=== PATIENT | male | born 1980 | race Caucasian/White ===

== ENCOUNTER 2016-12-08 11:04 | Emergency (ER) | payer BC ==
--- NOTE | 2016-12-08 11:48 | EDM.PDOC ---
ED HPI Trauma - General Chief Complaint: Lower Extremity Injury/Pain Stated Complaint: LEGS Time Seen by Provider: 12/08/16 11:15 - History of Present Illness INITIAL COMMENTS - FREE TEXT/NARRATIVE: History of present illness: [36 yo otherwise healthy male with chronic history of left lower leg pain x 6 months. He has been seen by PCP where there was lower leg US done which was negative. He states that they did an ultrasound of the heart which he does not know the results. He states he complete work up including DM. He states the pain starts on his feet with pain, numbness, tingling. ] Review of systems: As per history of present illness and below otherwise all systems reviewed and negative. Past medical history: As per history of present illness and as reviewed below otherwise noncontributory. Surgical history: As per history of present illness and as reviewed below otherwise noncontributory. Social history: No reported history of drug or alcohol abuse. Family history: As per history of present illness and as reviewed below otherwise noncontributory. Physical exam: General: Well developed, well nourished in NAD HEENT: Atraumatic, normocephalic, pupils reactive, negative for conjunctival pallor or scleral icterus, mucous membranes moist, throat clear, neck supple, nontender, trachea midline. Lungs: Clear to auscultation, breath sounds equal bilaterally, chest nontender. Heart: S1S2, regular, negative for clicks, rubs, or JVD. Abdomen: Soft, nondistended, nontender. Negative for masses or hepatosplenomegaly. Negative for costovertebral tenderness. Pelvis: Stable nontender. Genitourinary: Deferred. Rectal: Deferred. Extremities: Atraumatic, negative for cords or calf pain. Neurovascular unremarkable. NO EDEMA Neuro: Awake, alert, oriented. Cranial nerves II through XII unremarkable. Cerebellum unremarkable. Motor and sensory unremarkable throughout. Exam nonfocal. Diagnostics: [none] Therapeutics: [none] Impression: [neuropathy] Plan: [f/u with pcp f/u with neurology] Definitive disposition and diagnosis as appropriate pending reevaluation and review of above. Allergies/ADRs: Allergies No Known Allergies Allergy (Verified 12/08/16 11:26) Home Medications: Ambulatory Orders . [No Known Home Meds] 02/04/16 [Confirmed 12/08/16] Past Medical History - Past Health History Medical/Surgical History: Denies Medical/Surgical History HEENT History: Reports: None Cardiovascular History: Reports: None Respiratory History: Reports: Sleep apnea Gastrointestinal History: Reports: None Genitourinary History: Reports: None Musculoskeletal History: Reports: None Neurological History: Reports: None Psychiatric History: Reports: None Endocrine/Metabolic History: Reports: None Hematologic History: Reports: None Immunologic History: Reports: None Oncologic (Cancer) History: Reports: None Dermatologic History: Reports: Cellulitis - Infectious Disease History Infectious Disease History: Reports: Chicken pox Social & Family History - Family History Family Medical History: Noncontributory - Tobacco Use Smoking Status *Q: Never Smoker Years of Tobacco use: 5 Packs/Tins Daily: 0.1 Used Tobacco, but Quit: Yes Month Tobacco Last Used: 05/2015 Second Hand Smoke Exposure: No - Caffeine Use Caffeine Use: Reports: Coffee Other Caffeine Use: 1 cup per day - Alcohol Use Days Per Week of Alcohol Use: 0 - Recreational Drug Use Recreational Drug Use: No Review of Systems - Review of Systems Review Of Systems: See Below (See history of present illness) Trauma Exam - Physical Exam Exam: See Below (See history of present illness) Course - Vital Signs Last Recorded V/S: Last Vital Signs Temp 96.9 F 12/08/16 11:26 Pulse 83 12/08/16 11:26 Resp 16 12/08/16 11:26 BP 158/75 H 12/08/16 11:26 Pulse Ox 95 12/08/16 11:26 Departure - Departure Time of Disposition: 11:52 Disposition: Home, Self-Care 01 Condition: good Clinical Impression: Neuropathy Referrals: PCP,None [Primary Care Provider] - Reyna Harrington MD [Physician] - Forms: ED Department Discharge Additional Instructions: The following information is given to patients seen in the emergency department who are being discharged to home. This information is to outline your options for follow-up care. We provide all patients seen in our emergency department with a follow-up referral. The need for follow-up, as well as the timing and circumstances, are variable depending upon the specifics of your emergency department visit. If you don't have a primary care physician on staff, we will provide you with a referral. We always advise you to contact your personal physician following an emergency department visit to inform them of the circumstance of the visit and for follow-up with them and/or the need for any referrals to a consulting specialist. The emergency department will also refer you to a specialist when appropriate. This referral assures that you have the opportunity for follow-up care with a specialist. All of these measure are taken in an effort to provide you with optimal care, which includes your follow-up. Under all circumstances we always encourage you to contact your private physician who remains a resource for coordinating your care. When calling for follow-up care, please make the office aware that this follow-up is from your recent emergency room visit. If for any reason you are refused follow-up, please contact the [facility] Emergency Department at and asked to speak to the emergency department charge nurse.
[2016-12-08 12:20] VITALS: BP 132/73
== END 2016-12-08 12:15 | disposition home or self-care (01) ==
LOC: MW.ED 11:04
DX: G62.9 Polyneuropathy, unspecified (principal)
CPT/HCPCS: 99282; 99283

== ENCOUNTER 2017-02-12 13:47 | Emergency (ER) | payer BC ==
--- NOTE | 2017-02-12 13:52 | EDM.PDOC ---
ED HPI GENERAL MEDICAL PROBLEM - General Chief Complaint: Lower Extremity Injury/Pain Stated Complaint: STEPPED ON A NAIL Time Seen by Provider: 02/12/17 13:49 Source of Information: Reports: Patient History Limitations: Reports: No Limitations - History of Present Illness INITIAL COMMENTS - FREE TEXT/NARRATIVE: History of present illness: [] Patient stepped on a nail 2 days ago and now complains of pain and throbbing in his foot. He does not believe there is any part of the nail left in his foot and has been ambulatory. Patient denies any fevers or chills but notes some swelling and red areas on the top of his foot and ankle. Review of systems: As per history of present illness and below otherwise all systems reviewed and negative. Past medical history: As per history of present illness and as reviewed below otherwise noncontributory. Surgical history: As per history of present illness and as reviewed below otherwise noncontributory. Social history: No reported history of drug or alcohol abuse. Family history: As per history of present illness and as reviewed below otherwise noncontributory. Physical exam: General: Well developed, well nourished in NAD HEENT: Atraumatic, normocephalic, pupils reactive, negative for conjunctival pallor or scleral icterus, mucous membranes moist, throat clear, neck supple, nontender, trachea midline. Lungs: Clear to auscultation, breath sounds equal bilaterally, chest nontender. Heart: S1S2, regular, negative for clicks, rubs, or JVD. Abdomen: Soft, nondistended, nontender. Negative for masses or hepatosplenomegaly. Negative for costovertebral tenderness. Pelvis: Stable nontender. Genitourinary: Deferred. Rectal: Deferred. Extremities: Puncture wound near the base of the fourth toe, there is erythema in the lateral dorsum of the foot and lateral ankle negative for cords or calf pain. Neurovascular unremarkable. Neuro: Awake, alert, oriented. Cranial nerves II through XII unremarkable. Cerebellum unremarkable. Motor and sensory unremarkable throughout. Exam nonfocal. Diagnostics: [] X-ray negative for foreign body or fracture Therapeutics: [] Tetanus status updated, Rocephin 1 g IM given Impression: [] Puncture wound left foot Plan: [] Augmentin twice a day for 7 days, followup with her primary care physician or return here immediately if symptoms worsen or change Definitive disposition and diagnosis as appropriate pending reevaluation and review of above. left foot Pain Score (Numeric/FACES): 6 - Related Data Allergies Allergy/AdvReac Type Severity Reaction Status Date / Time No Known Allergies Allergy Verified 02/12/17 13:59 Home Meds: Home Meds Amoxicillin/Potassium Clav [Augmentin 875-125 Tablet] 1 each PO BID #14 tablet 02/12/17 [Rx] Blood Pressure Medication 02/12/17 [History] Past Medical History - Past Health History Medical/Surgical History: Denies Medical/Surgical History HEENT History: Reports: None Cardiovascular History: Reports: None Respiratory History: Reports: Sleep Apnea Gastrointestinal History: Reports: None Genitourinary History: Reports: None Musculoskeletal History: Reports: None Neurological History: Reports: None Psychiatric History: Reports: None Endocrine/Metabolic History: Reports: None Hematologic History: Reports: None Immunologic History: Reports: None Oncologic (Cancer) History: Reports: None Dermatologic History: Reports: Cellulitis - Infectious Disease History Infectious Disease History: Reports: Chicken Pox Social & Family History - Family History Family Medical History: Noncontributory - Tobacco Use Smoking Status *Q: Never Smoker Years of Tobacco use: 5 Packs/Tins Daily: 0.1 Used Tobacco, but Quit: Yes Month Tobacco Last Used: 05/2015 Second Hand Smoke Exposure: No - Caffeine Use Caffeine Use: Reports: Coffee Other Caffeine Use: 1 cup per day - Alcohol Use Days Per Week of Alcohol Use: 0 - Recreational Drug Use Recreational Drug Use: No Review of Systems - Review of Systems Review Of Systems: See Below (See history of present illness) ED EXAM, GENERAL - Physical Exam Exam: See Below (See history of present illness) Course - Vital Signs Last Recorded V/S: Last Vital Signs Temp 36.4 C 02/12/17 13:59 Pulse 85 02/12/17 13:59 Resp 18 02/12/17 13:59 BP 147/70 H 02/12/17 13:59 Pulse Ox 97 02/12/17 13:59 - Orders/Labs/Meds Orders: Active Orders 24 hr Category Date Time Status Vaccines to be Administered [RC] PER UNIT ROUTINE Care 02/12/17 13:57 Active Foot 2V Lt [CR] Stat Exams 02/12/17 13:56 Taken Meds: Medications Discontinued Medications Generic Name Dose Route Start Last Admin Trade Name Freq PRN Reason Stop Dose Admin Diphtheria/Tetanus/Acell Pertussis 0.5 ml 02/12/17 13:56 Adacel IM 02/12/17 13:57 .ONCE ONE Departure - Departure Time of Disposition: 14:50 Disposition: Home, Self-Care 01 Condition: good Clinical Impression: Puncture wound of left foot Qualifiers: Encounter type: initial encounter Qualified Code(s): S91.332A - Puncture wound without foreign body, left foot, initial encounter - Discharge Information Prescriptions: Amoxicillin/Potassium Clav [Augmentin 875-125 Tablet] 1 each PO BID #14 tablet Referrals: PCP,Not In Area [Primary Care Provider] - Forms: ED Department Discharge Additional Instructions: The following information is given to patients seen in the emergency department who are being discharged to home. This information is to outline your options for follow-up care. We provide all patients seen in our emergency department with a follow-up referral. The need for follow-up, as well as the timing and circumstances, are variable depending upon the specifics of your emergency department visit. If you don't have a primary care physician on staff, we will provide you with a referral. We always advise you to contact your personal physician following an emergency department visit to inform them of the circumstance of the visit and for follow-up with them and/or the need for any referrals to a consulting specialist. The emergency department will also refer you to a specialist when appropriate. This referral assures that you have the opportunity for follow-up care with a specialist. All of these measure are taken in an effort to provide you with optimal care, which includes your follow-up. Under all circumstances we always encourage you to contact your private physician who remains a resource for coordinating your care. When calling for follow-up care, please make the office aware that this follow-up is from your recent emergency room visit. If for any reason you are refused follow-up, please contact the [facility] Emergency Department at and asked to speak to the emergency department charge nurse. Take Augmentin twice a day, warm soaks to the foot, Motrin or Aleve for pain followup with primary care physician or return here immediately if any symptoms change or worsen. [facility] Primary Care [address] [place] [id number] - My Orders Last 24 Hours: My Active Orders 02/12/17 13:56 Foot 2V Lt [CR] Stat 02/12/17 13:57 Vaccines to be Administered [RC] PER UNIT ROUTINE - Assessment/Plan Last 24 Hours: My Active Orders 02/12/17 13:56 Foot 2V Lt [CR] Stat 02/12/17 13:57 Vaccines to be Administered [RC] PER UNIT ROUTINE
[2017-02-12] MEDS ORDERED: Diphtheria,Pertussis(Acell),Tetanus Vaccine 0.5 ML Syringe IM ONE (13:56)
[2017-02-12] MEDS ORDERED: cefTRIAXone 1,000 MG in Lidocaine 1% 4 ML IM ONE (14:21)
--- NOTE | 2017-02-12 14:34 | CR ---
EXAMINATION: Left foot HISTORY: Stepped on a nail COMPARISON: CT dated 06/18/2015 TECHNIQUE: 2 views FINDINGS/IMPRESSION: There is no acute osseous abnormality, dislocation, or fracture. Bone mineraliz ation and joint spaces appear normal. There is mild soft tissue edema adjacent to the left forefoot most prominent along the dorsal aspect.
[2017-02-12 14:56] VITALS: BP 130/65
== END 2017-02-12 14:55 | disposition home or self-care (01) ==
LOC: MW.ED 13:47
DX: S91.332A Puncture wound without foreign body, left foot, initial encounter (principal); Z23 Encounter for immunization; W45.0XXA Nail entering through skin, initial encounter
CPT/HCPCS: 73620; 90471; 90715; 99283; J0696

== ENCOUNTER 2017-04-25 08:37 | Observation (INO) | payer BC ==
[2017-04-25] MEDS ORDERED: Sodium Chloride 0.9% 10 ML Syringe FLUSH PRN (08:49)
[2017-04-25] MEDS ORDERED: Sodium Chloride 0.9% 2.5 ML Syringe FLUSH PRN (08:49)
--- NOTE | 2017-04-25 09:05 | EDM.PDOC ---
<MeridaAndi - Last Filed: 04/25/17 10:16> ED HPI GENERAL MEDICAL PROBLEM - General Chief Complaint: Lower Extremity Injury/Pain Stated Complaint: LIGHT HEADED, LEG DIFFICULTY Time Seen by Provider: 04/25/17 08:43 - History of Present Illness INITIAL COMMENTS - FREE TEXT/NARRATIVE: HISTORY AND PHYSICAL: History of present illness: This is a 36-year-old male presenting to the emergency department the chief complaint of left lower leg pain. Patient tells me that the pain began yesterday. Rates it a 7 out of 10. Also complains of shortness of breath. Denies chest pain. Denies any nausea or vomiting. Denies any fevers or chills. Review of systems: As per history of present illness and below otherwise all systems reviewed and negative. Past medical history: Hypertension Surgical history: As per history of present illness and as reviewed below otherwise noncontributory. Social history: No reported history of drug or alcohol abuse. Family history: As per history of present illness and as reviewed below otherwise noncontributory. Physical exam: HEENT: Atraumatic, normocephalic, pupils reactive, negative for conjunctival pallor or scleral icterus, mucous membranes moist, throat clear, neck supple, nontender, trachea midline. Lungs: Clear to auscultation, breath sounds equal bilaterally, chest nontender. Heart: S1S2, regular, negative for clicks, rubs, or JVD. Abdomen: Soft, nondistended, nontender. Negative for masses or hepatosplenomegaly. Negative for costovertebral tenderness. Extremities: Atraumatic. +calf pain in left leg. No erythema/swelling. No pain/ tenderness in right leg. Strength 5/5 in upper extremities. Neuro: Awake, alert, oriented. Diagnostics: CBC CMP EKG CXR Troponin Blood cultures x2 Lactic acid US L. lower extremity Therapeutics: IV NS bolus Impression: Sepsis secondary to cellulitis of the leg Plan: Admit to observation for IV antibiotics Left Lower Leg Pain Score (Numeric/FACES): 7 - Related Data Allergies Allergy/AdvReac Type Severity Reaction Status Date / Time No Known Allergies Allergy Verified 04/25/17 08:42 Home Meds: Home Meds Omeprazole 1 cap PO ASDIRECTED PRN 04/25/17 [History] amLODIPine [Norvasc] 1 tab PO DAILY 04/25/17 [History] Past Medical History - Past Health History Medical/Surgical History: Denies Medical/Surgical History HEENT History: Reports: None Cardiovascular History: Reports: None Respiratory History: Reports: Sleep Apnea Gastrointestinal History: Reports: None Genitourinary History: Reports: None Musculoskeletal History: Reports: None Neurological History: Reports: None Psychiatric History: Reports: None Endocrine/Metabolic History: Reports: None Hematologic History: Reports: None Immunologic History: Reports: None Oncologic (Cancer) History: Reports: None Dermatologic History: Reports: Cellulitis - Infectious Disease History Infectious Disease History: Reports: Chicken Pox Social & Family History - Family History Family Medical History: Noncontributory - Tobacco Use Smoking Status *Q: Never Smoker Years of Tobacco use: 5 Packs/Tins Daily: 0.1 Used Tobacco, but Quit: Yes Month Tobacco Last Used: 05/2015 Second Hand Smoke Exposure: No - Caffeine Use Caffeine Use: Reports: Coffee Other Caffeine Use: 1 cup per day - Alcohol Use Days Per Week of Alcohol Use: 0 Number of Drinks Per Day: 2 Total Drinks Per Week: 0 - Recreational Drug Use Recreational Drug Use: No Review of Systems - Review of Systems Review Of Systems: See Below ED EXAM, GENERAL - Physical Exam Exam: See Below Course - Vital Signs Last Recorded V/S: Last Vital Signs Temp 37.7 C 04/25/17 10:00 Pulse 103 H 04/25/17 10:29 Resp 20 04/25/17 10:29 BP 133/60 04/25/17 10:29 Pulse Ox 96 04/25/17 10:29 - Orders/Labs/Meds Orders: Active Orders 24 hr Category Date Time Status Admission Status [Patient Status] [ADT] Stat ADT 04/25/17 10:14 Active EKG Documentation Completion [RC] STAT Care 04/25/17 08:49 Active CULTURE BLOOD [BC] Stat Lab 04/25/17 09:42 Received CULTURE BLOOD [BC] Stat Lab 04/25/17 09:59 Received VANCOMYCIN TROUGH [CHEM] Stat Lab 04/26/17 10:00 Ordered Piperacillin/Tazobactam [Piperacil-Tazobact] 3.375 gm Med 04/25/17 10:00 Active Sodium Chloride 0.9% [Normal Saline] 50 ml IV Q6H Sodium Chloride 0.9% [Normal Saline] 1,000 ml Med 04/25/17 10:30 Active IV ASDIRECTED Sodium Chloride 0.9% [Normal Saline] 1,000 ml Med 04/25/17 10:38 Active IV NOW Sodium Chloride 0.9% [Saline Flush] Med 04/25/17 08:49 Active 10 ml FLUSH ASDIRECTED PRN Sodium Chloride 0.9% [Saline Flush] Med 04/25/17 08:49 Active 2.5 ml FLUSH ASDIRECTED PRN Vancomycin 1,500 mg Med 04/25/17 11:00 Active Sodium Chloride 0.9% [Normal Saline] 500 ml IV Q8H Vancomycin Pharmacy to Dose [Pharmacy to Dose - Med 04/25/17 10:15 Active Vancomycin] 1 dose .XX ASDIRECTED Blood Culture x2 Reflex Set [OM.PC] Stat Oth 04/25/17 09:25 Ordered Saline Lock Insert [OM.PC] Stat Oth 04/25/17 08:49 Ordered Medication Orders Piperacillin Sod/Tazobactam (Sod 3.375 gm/ Sodium Chloride) 50 mls @ 100 mls/ hr IV Q6H PORFIRIO Last Admin: 04/25/17 10:15 Dose: 100 mls/hr Vancomycin HCl 1,500 mg/ (Sodium Chloride) 500 mls @ 250 mls/hr IV Q8H PORFIRIO Sodium Chloride (Normal Saline) 1,000 mls @ 150 mls/hr IV ASDIRECTED PORFIRIO Sodium Chloride (Normal Saline) 1,000 mls @ 999 mls/hr IV NOW STA Stop: 04/25/17 11:38 Last Admin: 04/25/17 10:38 Dose: 999 mls/hr Sodium Chloride (Saline Flush) 10 ml FLUSH ASDIRECTED PRN PRN Reason: Keep Vein Open Sodium Chloride (Saline Flush) 2.5 ml FLUSH ASDIRECTED PRN PRN Reason: Keep Vein Open Vancomycin HCl (Pharmacy To Dose - Vancomycin) 1 dose .XX ASDIRECTED [facility] Labs: Laboratory Tests 04/25/17 04/25/17 04/25/17 Range/Units 08:49 08:49 08:49 WBC 16.78 H (4.0-11.0) K/uL RBC 5.48 (4.50-5.90) M/uL Hgb 16.4 (13.0-17.0) g/dL Hct 46.7 (38.0-50.0) % MCV 85.2 (80.0-98.0) fL MCH 29.9 (27.0-32.0) pg MCHC 35.1 (31.0-37.0) g/dL RDW Std Deviation 37.6 (28.0-62.0) fl RDW Coeff of Maureen 12 (11.0-15.0) % Plt Count 182 (150-400) K/uL MPV 9.40 (7.40-12.00) fL Neut % (Auto) 85.5 H (48.0-80.0) % Lymph % (Auto) 8.3 L (16.0-40.0) % Brooks % (Auto) 4.8 (0.0-15.0) % Eos % (Auto) 1.3 (0.0-7.0) % Baso % (Auto) 0.1 (0.0-1.5) % Neut # (Auto) 14.3 H (1.4-5.7) K/uL Lymph # (Auto) 1.4 (0.6-2.4) K/uL Brooks # (Auto) 0.8 (0.0-0.8) K/uL Eos # (Auto) 0.2 (0.0-0.7) K/uL Baso # (Auto) 0.0 (0.0-0.1) K/uL Lactate (0.20-2.00) mmol/L Sodium 137 (136-146) mmol/L Potassium 4.3 (3.5-5.1) mmol/L Chloride 103 (98-110) mmol/L Carbon Dioxide 24 (21-31) mmol/L BUN 13 (6.0-23.0) mg/dL Creatinine 0.8 (0.6-1.5) mg/dL Est Cr Clr Drug Dosing 147.04 mL/min Estimated GFR (MDRD) > 60.0 ml/min Glucose 102 (60-110) mg/dL Calcium 9.1 (8.8-10.8) mg/dL Total Bilirubin 0.8 (0.1-1.5) mg/dL AST 25 (5-40) IU/L ALT 53 (8-54) IU/L Alkaline Phosphatase 80 (40-150) Troponin I < 0.10 (0.0-0.29) NG/ML Total Protein 7.3 (6.0-8.0) g/dL Albumin 4.3 (3.5-5.0) g/dL Globulin 3.0 (2.0-3.5) g/dL Albumin/Globulin Ratio 1.4 (1.3-2.8) 04/25/17 Range/Units 09:42 WBC (4.0-11.0) K/uL RBC (4.50-5.90) M/uL Hgb (13.0-17.0) g/dL Hct (38.0-50.0) % MCV (80.0-98.0) fL MCH (27.0-32.0) pg MCHC (31.0-37.0) g/dL RDW Std Deviation (28.0-62.0) fl RDW Coeff of Maureen (11.0-15.0) % Plt Count (150-400) K/uL MPV (7.40-12.00) fL Neut % (Auto) (48.0-80.0) % Lymph % (Auto) (16.0-40.0) % Brooks % (Auto) (0.0-15.0) % Eos % (Auto) (0.0-7.0) % Baso % (Auto) (0.0-1.5) % Neut # (Auto) (1.4-5.7) K/uL Lymph # (Auto) (0.6-2.4) K/uL Brooks # (Auto) (0.0-0.8) K/uL Eos # (Auto) (0.0-0.7) K/uL Baso # (Auto) (0.0-0.1) K/uL Lactate 2.7 H (0.20-2.00) mmol/L Sodium (136-146) mmol/L Potassium (3.5-5.1) mmol/L Chloride (98-110) mmol/L Carbon Dioxide (21-31) mmol/L BUN (6.0-23.0) mg/dL Creatinine (0.6-1.5) mg/dL Est Cr Clr Drug Dosing mL/min Estimated GFR (MDRD) ml/min Glucose (60-110) mg/dL Calcium (8.8-10.8) mg/dL Total Bilirubin (0.1-1.5) mg/dL AST (5-40) IU/L ALT (8-54) IU/L Alkaline Phosphatase (40-150) Troponin I (0.0-0.29) NG/ML Total Protein (6.0-8.0) g/dL Albumin (3.5-5.0) g/dL Globulin (2.0-3.5) g/dL Albumin/Globulin Ratio (1.3-2.8) Meds: Medications Generic Name Dose Route Start Last Admin Trade Name Freq PRN Reason Stop Dose Admin Piperacillin Sod/Tazobactam 50 mls @ 100 mls/hr 04/25/17 10:00 04/25/17 10:15 Sod 3.375 gm/ Sodium Chloride IV 100 mls/hr Q6H PORFIRIO Administration Vancomycin HCl 1,500 mg/ 500 mls @ 250 mls/hr 04/25/17 11:00 Sodium Chloride IV Q8H PORFIRIO Sodium Chloride 1,000 mls @ 150 mls/hr 04/25/17 10:30 Normal Saline IV ASDIRECTED PORFIRIO Sodium Chloride 1,000 mls @ 999 mls/hr 04/25/17 10:38 04/25/17 10:38 Normal Saline IV 04/25/17 11:38 999 mls/hr NOW STA Administration Sodium Chloride 10 ml 04/25/17 08:49 Saline Flush FLUSH ASDIRECTED PRN Keep Vein Open Sodium Chloride 2.5 ml 04/25/17 08:49 Saline Flush FLUSH ASDIRECTED PRN Keep Vein Open Vancomycin HCl 1 dose 04/25/17 10:15 Pharmacy To Dose - Vancomycin .XX ASDIRECTED PORFIRIO Discontinued Medications Generic Name Dose Route Start Last Admin Trade Name Freq PRN Reason Stop Dose Admin Sodium Chloride 1,000 mls @ 999 mls/hr 04/25/17 09:29 04/25/17 10:02 Normal Saline IV 04/25/17 10:29 999 mls/hr STAT ONE Administration Morphine Sulfate 2 mg 04/25/17 10:18 04/25/17 10:38 Morphine IV 04/25/17 10:19 Not Given ONETIME ONE Morphine Sulfate 2 mg 04/25/17 10:22 04/25/17 10:27 Morphine IVPUSH 04/25/17 10:23 2 mg NOW STA Administration Ondansetron HCl 4 mg 04/25/17 10:26 04/25/17 10:31 Zofran IVPUSH 04/25/17 10:27 4 mg ONETIME ONE Administration Departure - Departure Time of Disposition: 10:12 Disposition: Admitted As Inpatient 68 Condition: Fair Clinical Impression: Sepsis due to cellulitis - Discharge Information Referrals: PCP,None [Primary Care Provider] - Forms: ED Department Discharge <Sheyla Sprague - Last Filed: 04/25/17 10:55> ED HPI GENERAL MEDICAL PROBLEM - History of Present Illness INITIAL COMMENTS - FREE TEXT/NARRATIVE: I have seen and discussed this patient with Dr. Merida and agree with plan above.
[2017-04-25] MEDS ORDERED: Sodium Chloride 0.9% 1,000 ML IV ONE ×2 (09:29→15:30)
[2017-04-25 09:32] LABS: CHLORIDE,CL 103 mmol/L (98-110); SODIUM,NA 137 mmol/L (136-146)
--- NOTE | 2017-04-25 09:34 | US ---
Left lower extremity venous Doppler Doppler images lower extremity demonstrate normal phasicity augmentation competence and absent pulsa tility lower extremity veins with no evidence of deep vein thrombus. There is a lymph node in the le ft groin measuring 3.73 cm. Ultrasonographically this appears to have a fatty centrum Impression: No evidence of deep vein thrombosis in the left lower extremity. 3.7 cm lymph node in th e left groin
--- NOTE | 2017-04-25 09:35 | CR ---
2 view chest The costophrenic angles are sharp. The mediastinum is normal and the lungs are clear. Impression: Normal chest
[2017-04-25] MEDS: Piperacillin/Tazobactam 3.375 GM in Sodium Chloride 0.9% 50 ML IV SCH ×3 (10:15→21:30)
[2017-04-25] MEDS ORDERED: Morphine 10 MG/ML Syringe IV ONE (10:18)
[2017-04-25] MEDS ORDERED: Morphine 2 MG/ML Syringe IVPUSH STA (10:22)
[2017-04-25] MEDS ORDERED: Ondansetron 4 MG/2 ML SDV IVPUSH ONE (10:26)
[2017-04-25] MEDS ORDERED: Sodium Chloride 0.9% 1,000 ML IV SCH (10:30)
[2017-04-25] MEDS ORDERED: Sodium Chloride 0.9% 1,000 ML IV STA (10:38)
[2017-04-25] MEDS ORDERED: Ondansetron 4 MG Tab.DIS PO PRN (11:08)
[2017-04-25] MEDS: Sodium Chloride 0.9% 1,000 ML IV SCH (11:14)
--- NOTE | 2017-04-25 11:19 | PCM.HP ---
<Junior Tapia - Last Filed: 04/25/17 11:13> H&P History of Present Illness - General Date of Service: 04/25/17 Admit Problem/Dx: Admission Diagnosis/Problem Admission Diagnosis/Problem left lower extremity Cellulitis Source of Information: Patient History Limitations: Reports: No Limitations - History of Present Illness Initial Comments - Free Text/Narative: 36-year-old male with a medical history of hypertension and GERD that is being admitted with left lower extremity cellulitis. Patient has 1 previous admission with cellulitis in the left lower extremity in 2014. Patient states that he woke up this morning and noted that his left lower extremity at the foot and up along the sides of his leg was tender to palpation, warm and erythematous. He began to have fever and chills and presented to the emergency room. Pain in the left lower extremity is rated as 8 out of 10 at its worst. Patient does express some pain in his left groin that does not note any redness or erythema in the thigh. He denies any recent travel. Patient states that yesterday he went about his day without any problems and went to bed without any problems or pain in his lower extremities. Patient cannot recall any trauma to the left lower extremity. He notes that he has dry skin on his feet and thinks that this may be the source of his infection. He denies any chest pain, palpitations, shortness of breath, wheezing, cough, abdominal pain, nausea, vomiting, constipation, diarrhea. He has no history of pulmonary embolism. He denies any pain in the calves bilaterally. ER course: ER course: Patient given multiple IV fluid boluses and started on IV vancomycin and Zosyn. CBC shows elevated white blood cell count with his lactate level elevated at 2.6. Patient is slightly tachycardic with a maximum temperature 99.9 while in the emergency room. He was given multiple doses of IV morphine for pain relief which reduced his pain from 8 out of 10 down to 6 out of 10. Left Lower Leg Pain Score (Numeric/FACES): 7 - Related Data Allergies/Adverse Reactions: Allergies Allergy/AdvReac Type Severity Reaction Status Date / Time No Known Allergies Allergy Verified 04/25/17 08:42 Home Medications: Home Meds Omeprazole 1 cap PO ASDIRECTED PRN 04/25/17 [History] amLODIPine [Norvasc] 1 tab PO DAILY 04/25/17 [History] Past Medical History - Past Health History Medical/Surgical History: Denies Medical/Surgical History HEENT History: Reports: None Cardiovascular History: Reports: None Respiratory History: Reports: Sleep Apnea Gastrointestinal History: Reports: None Genitourinary History: Reports: None Musculoskeletal History: Reports: None Neurological History: Reports: None Psychiatric History: Reports: None Endocrine/Metabolic History: Reports: None Hematologic History: Reports: None Immunologic History: Reports: None Oncologic (Cancer) History: Reports: None Dermatologic History: Reports: Cellulitis - Infectious Disease History Infectious Disease History: Reports: Chicken Pox Social & Family History - Family History Family Medical History: Noncontributory - Tobacco Use Smoking Status *Q: Never Smoker Years of Tobacco use: 5 Packs/Tins Daily: 0.1 Used Tobacco, but Quit: Yes Month Tobacco Last Used: 05/2015 Second Hand Smoke Exposure: No - Caffeine Use Caffeine Use: Reports: Coffee Other Caffeine Use: 1 cup per day Caffeine Use Comment: 2 cups per day - Alcohol Use Days Per Week of Alcohol Use: 0 Number of Drinks Per Day: 2 Total Drinks Per Week: 0 - Recreational Drug Use Recreational Drug Use: No H&P Review of Systems - Review of Systems: Review Of Systems: See Below General: Reports: Fever, Chills HEENT: Reports: No Symptoms Pulmonary: Reports: No Symptoms Cardiovascular: Reports: No Symptoms Gastrointestinal: Reports: No Symptoms Genitourinary: Reports: No Symptoms Musculoskeletal: Reports: Leg Pain (Left lower extremity at the foot) Skin: Reports: Erythema, Other (Warm to palpation) Psychiatric: Reports: No Symptoms Neurological: Reports: No Symptoms Hematologic/Lymphatic: Reports: No Symptoms Immunologic: Reports: No Symptoms Exam - Exam Exam: See Below - Vital Signs Vital Signs: Last Vital Signs Temp 99.9 F 04/25/17 10:00 Pulse 103 H 04/25/17 10:29 Resp 20 04/25/17 10:29 BP 133/60 04/25/17 10:29 Pulse Ox 96 04/25/17 10:29 Weight: 140.614 kg - Exam Quality Assessment: DVT Prophylaxis (Lovenox) General: Alert, Oriented, Cooperative HEENT: Conjunctiva Clear, Hearing Intact, Mucosa Moist & [place], Posterior Pharynx Clear Neck: Supple, Trachea Midline, 2 Lungs: Clear to Auscultation, Normal Respiratory Effort Cardiovascular: Regular Rhythm, Tachycardia GI/Abdominal Exam: Normal Bowel Sounds, Soft, Non-Tender, No Organomegaly, No Distention, No Abnormal Bruit, No Mass Extremities: No Pedal Edema, Normal Capillary Refill, Increased Warmth (Left lower extremity at the foot of the sides of the leg), Redness (Left lower extremity at the foot sides of the leg) Peripheral Pulses: 2+: Radial (L), Radial (R), Posterior Tibial (L), Posterior Tibial (R) Skin: Warm, Dry, Intact Neuro Extensive - Mental Status: Alert, Oriented x3, Normal Mood/Affect, Normal Cognition Psychiatric: Alert, Normal Affect, Normal Mood - Patient Data Lab Results Last 24 hrs: Laboratory Results - last 24 hr 04/25/17 04/25/17 04/25/17 Range/Units 08:49 08:49 08:49 WBC 16.78 H (4.0-11.0) K/uL RBC 5.48 (4.50-5.90) M/uL Hgb 16.4 (13.0-17.0) g/dL Hct 46.7 (38.0-50.0) % MCV 85.2 (80.0-98.0) fL MCH 29.9 (27.0-32.0) pg MCHC 35.1 (31.0-37.0) g/dL RDW Std Deviation 37.6 (28.0-62.0) fl RDW Coeff of Maureen 12 (11.0-15.0) % Plt Count 182 (150-400) K/uL MPV 9.40 (7.40-12.00) fL Neut % (Auto) 85.5 H (48.0-80.0) % Lymph % (Auto) 8.3 L (16.0-40.0) % [place] % (Auto) 4.8 (0.0-15.0) % Eos % (Auto) 1.3 (0.0-7.0) % Baso % (Auto) 0.1 (0.0-1.5) % Neut # (Auto) 14.3 H (1.4-5.7) K/uL Lymph # (Auto) 1.4 (0.6-2.4) K/uL [place] # (Auto) 0.8 (0.0-0.8) K/uL Eos # (Auto) 0.2 (0.0-0.7) K/uL Baso # (Auto) 0.0 (0.0-0.1) K/uL Lactate (0.20-2.00) mmol/L Sodium 137 (136-146) mmol/L Potassium 4.3 (3.5-5.1) mmol/L Chloride 103 (98-110) mmol/L Carbon Dioxide 24 (21-31) mmol/L BUN 13 (6.0-23.0) mg/dL Creatinine 0.8 (0.6-1.5) mg/dL Est Cr Clr Drug Dosing 147.04 mL/min Estimated GFR (MDRD) > 60.0 ml/min Glucose 102 (60-110) mg/dL Calcium 9.1 (8.8-10.8) mg/dL Total Bilirubin 0.8 (0.1-1.5) mg/dL AST 25 (5-40) IU/L ALT 53 (8-54) IU/L Alkaline Phosphatase 80 (40-150) Troponin I < 0.10 (0.0-0.29) NG/ML Total Protein 7.3 (6.0-8.0) g/dL Albumin 4.3 (3.5-5.0) g/dL Globulin 3.0 (2.0-3.5) g/dL Albumin/Globulin Ratio 1.4 (1.3-2.8) 04/25/17 Range/Units 09:42 WBC (4.0-11.0) K/uL RBC (4.50-5.90) M/uL Hgb (13.0-17.0) g/dL Hct (38.0-50.0) % MCV (80.0-98.0) fL MCH (27.0-32.0) pg MCHC (31.0-37.0) g/dL RDW Std Deviation (28.0-62.0) fl RDW Coeff of Maureen (11.0-15.0) % Plt Count (150-400) K/uL MPV (7.40-12.00) fL Neut % (Auto) (48.0-80.0) % Lymph % (Auto) (16.0-40.0) % [place] % (Auto) (0.0-15.0) % Eos % (Auto) (0.0-7.0) % Baso % (Auto) (0.0-1.5) % Neut # (Auto) (1.4-5.7) K/uL Lymph # (Auto) (0.6-2.4) K/uL [place] # (Auto) (0.0-0.8) K/uL Eos # (Auto) (0.0-0.7) K/uL Baso # (Auto) (0.0-0.1) K/uL Lactate 2.7 H (0.20-2.00) mmol/L Sodium (136-146) mmol/L Potassium (3.5-5.1) mmol/L Chloride (98-110) mmol/L Carbon Dioxide (21-31) mmol/L BUN (6.0-23.0) mg/dL Creatinine (0.6-1.5) mg/dL Est Cr Clr Drug Dosing mL/min Estimated GFR (MDRD) ml/min Glucose (60-110) mg/dL Calcium (8.8-10.8) mg/dL Total Bilirubin (0.1-1.5) mg/dL AST (5-40) IU/L ALT (8-54) IU/L Alkaline Phosphatase (40-150) Troponin I (0.0-0.29) NG/ML Total Protein (6.0-8.0) g/dL Albumin (3.5-5.0) g/dL Globulin (2.0-3.5) g/dL Albumin/Globulin Ratio (1.3-2.8) Result Diagrams: 04/25/17 08:49 04/25/17 08:49 *Q Meaningful Use (ADM) - VTE *Q VTE Criteria *Q: - Stroke *Q Stroke Criteria *Q: - AMI *Q AMI Criteria *Q: - Problem List (1) Cellulitis of left anterior lower leg SNOMED Code(s): 359755436 ICD Code: L03.116 - CELLULITIS OF LEFT LOWER LIMB Status: Acute Current Visit: No (2) Lactic acidosis SNOMED Code(s): 94870935 ICD Code: E87.2 - ACIDOSIS Status: Acute Current Visit: Yes Problem List Initiated/Reviewed/Updated: Yes Orders Last 24hrs: Active Orders 24 hr Category Date Time Status Admission Status [Patient Status] [ADT] Stat ADT 04/25/17 10:14 Active EKG Documentation Completion [RC] STAT Care 04/25/17 08:49 Active Height and Weight [RC] DAILY Care 04/25/17 11:08 Ordered Intake and Output [RC] QSHIFT Care 04/25/17 11:09 Ordered Notify Provider Vital Signs [RC] ASDIRECTED Care 04/25/17 11:09 Ordered Oxygen Therapy [RC] PRN Care 04/25/17 11:08 Ordered Pulse Oximetry [RC] PRN Care 04/25/17 11:09 Ordered Up With Assistance [RC] ASDIRECTED Care 04/25/17 11:08 Ordered VTE/DVT Education [RC] PER UNIT ROUTINE Care 04/25/17 11:08 Ordered Vital Signs [RC] Q4H Care 04/25/17 11:08 Ordered Regular Diet [DIET] Diet 04/25/17 Breakfast Ordered BASIC METABOLIC PANEL,BMP [CHEM] AM Lab 04/26/17 05:11 Ordered BASIC METABOLIC PANEL,BMP [CHEM] AM Lab 04/27/17 05:11 Ordered CBC WITH AUTO DIFF [HEME] AM Lab 04/26/17 05:11 Ordered CBC WITH AUTO DIFF [HEME] AM Lab 04/27/17 05:11 Ordered CULTURE BLOOD [BC] Stat Lab 04/25/17 09:42 Received CULTURE BLOOD [BC] Stat Lab 04/25/17 09:59 Received LACTIC ACID,WHOLE BLOOD [BG] Q6H Lab 04/25/17 16:00 Ordered LACTIC ACID,WHOLE BLOOD [BG] Q6H Lab 04/25/17 22:00 Ordered VANCOMYCIN TROUGH [CHEM] Stat Lab 04/26/17 10:00 Ordered Acetaminophen [Tylenol] Med 04/25/17 11:08 Ordered 650 mg PO Q4H PRN Enoxaparin [Lovenox] Med 04/25/17 11:15 Ordered 40 mg SUBCUT DAILY Morphine Med 04/25/17 11:08 Ordered 2 mg IVPUSH Q2H PRN Ondansetron [Zofran ODT] Med 04/25/17 11:08 Ordered 4 mg PO Q4H PRN Piperacillin/Tazobactam [Piperacil-Tazobact] 3.375 gm Med 04/25/17 10:00 Active Sodium Chloride 0.9% [Normal Saline] 50 ml IV Q6H Sodium Chloride 0.9% @ 125 MLS/HR (1000ml) Med 04/25/17 11:15 Ordered Sodium Chloride 0.9% [Normal Saline] 1,000 ml IV ASDIRECTED Sodium Chloride 0.9% [Normal Saline] 1,000 ml Med 04/25/17 10:30 Active IV ASDIRECTED Sodium Chloride 0.9% [Normal Saline] 1,000 ml Med 04/25/17 10:38 Active IV NOW Sodium Chloride 0.9% [Saline Flush] Med 04/25/17 08:49 Active 10 ml FLUSH ASDIRECTED PRN Sodium Chloride 0.9% [Saline Flush] Med 04/25/17 08:49 Active 2.5 ml FLUSH ASDIRECTED PRN Vancomycin 1,500 mg Med 04/25/17 11:00 Active Sodium Chloride 0.9% [Normal Saline] 500 ml IV Q8H Vancomycin Pharmacy to Dose [Pharmacy to Dose - Med 04/25/17 10:15 Active Vancomycin] 1 dose .XX ASDIRECTED Blood Culture x2 Reflex Set [OM.PC] Stat Oth 04/25/17 09:25 Ordered Saline Lock Insert [OM.PC] Stat Oth 04/25/17 08:49 Ordered Resuscitation Status Routine Resus Stat 04/25/17 11:08 Ordered Medication Orders Acetaminophen (Tylenol) 650 mg PO Q4H PRN PRN Reason: Pain (Mild 1-3)/fever Enoxaparin Sodium (Lovenox) 40 mg SUBCUT DAILY [facility] Piperacillin Sod/Tazobactam (Sod 3.375 gm/ Sodium Chloride) 50 mls @ 100 mls/ hr IV Q6H [facility] Last Admin: 04/25/17 10:15 Dose: 100 mls/hr Vancomycin HCl 1,500 mg/ (Sodium Chloride) 500 mls @ 250 mls/hr IV Q8H [facility] Sodium Chloride (Normal Saline) 1,000 mls @ 150 mls/hr IV ASDIRECTED [facility] Sodium Chloride (Normal Saline) 1,000 mls @ 999 mls/hr IV NOW STA Stop: 04/25/17 11:38 Last Admin: 04/25/17 10:38 Dose: 999 mls/hr Sodium Chloride (Normal Saline) 1,000 mls @ 125 mls/hr IV ASDIRECTED [facility] Morphine Sulfate (Morphine) 2 mg IVPUSH Q2H PRN PRN Reason: Pain (severe 7-10) Stop: 04/26/17 11:10 Ondansetron HCl (Zofran Odt) 4 mg PO Q4H PRN PRN Reason: nausea, able to take PO Sodium Chloride (Saline Flush) 10 ml FLUSH ASDIRECTED PRN PRN Reason: Keep Vein Open Sodium Chloride (Saline Flush) 2.5 ml FLUSH ASDIRECTED PRN PRN Reason: Keep Vein Open Vancomycin HCl (Pharmacy To Dose - Vancomycin) 1 dose .XX ASDIRECTED [facility] Assessment/Plan Comment:: 36-year-old male being admitted with left lower extending cellulitis. #1. Lactic acidosis secondary to left lower extremity cellulitis: -Patient will be started on IV vancomycin and Zosyn. Patient has elevated white blood cell count. We will repeat his CBC in the morning and trend his white blood cell count. -IV morphine as needed for pain relief. -Initial lactate was 2.6. We will repeat his lactate every 6 hours until his lactate is less than 2. -Patient started on IV normal saline at 125 mL/hour. #2. Hypertension: -We will restart the patient's home medication of Norvasc. DVT prophylaxis: Lovenox. We will not use SCDs at this time secondary to pain in the left lower extremity. Discharge: 1-2 days pending improvement <Pedrito Ortiz - Last Filed: 04/25/17 18:02> H&P History of Present Illness - General Admit Problem/Dx: I performed a history and physical examination of the patient and I have discussed the management with the resident. I have reviewed the residents note and agree with the documented findings and plan of care. Exam - Vital Signs Vital Signs: Last Vital Signs Temp 39.4 C H 04/25/17 17:25 Pulse 101 H 04/25/17 16:58 Resp 20 04/25/17 16:58 BP 141/56 H 04/25/17 16:58 Pulse Ox 96 04/25/17 16:58 - Patient Data Lab Results Last 24 hrs: Laboratory Results - last 24 hr 04/25/17 Range/Units 16:00 Lactate 2.2 H (0.20-2.00) mmol/L Result Diagrams: 04/25/17 08:49 04/25/17 08:49 *Q Meaningful Use (ADM) - VTE *Q VTE Criteria *Q: - Stroke *Q Stroke Criteria *Q: - AMI *Q AMI Criteria *Q: Orders Last 24hrs: Active Orders 24 hr Category Date Time Status Regular Diet [DIET] Diet 04/25/17 Lunch Active BASIC METABOLIC PANEL,BMP [CHEM] AM Lab 04/26/17 05:11 Ordered BASIC METABOLIC PANEL,BMP [CHEM] AM Lab 04/27/17 05:11 Ordered CBC WITH AUTO DIFF [HEME] AM Lab 04/26/17 05:11 Ordered CBC WITH AUTO DIFF [HEME] AM Lab 04/27/17 05:11 Ordered LACTIC ACID,WHOLE BLOOD [BG] Q6H Lab 04/25/17 22:00 Ordered LACTIC ACID,WHOLE BLOOD [BG] Q6H Lab 04/26/17 04:00 Ordered Medication Orders Acetaminophen (Tylenol) 650 mg PO Q4H PRN PRN Reason: Pain (Mild 1-3)/fever Last Admin: 04/25/17 13:16 Dose: 650 mg Amlodipine Besylate (Norvasc) 5 mg PO DAILY [facility] Enoxaparin Sodium (Lovenox) 40 mg SUBCUT DAILY [facility] Last Admin: 04/25/17 13:33 Dose: 40 mg Piperacillin Sod/Tazobactam (Sod 3.375 gm/ Sodium Chloride) 50 mls @ 100 mls/ hr IV Q6H [facility] Last Admin: 04/25/17 15:19 Dose: 100 mls/hr Infusion: 04/25/17 10:45 Dose: 100 mls/hr Admin: 04/25/17 10:15 Dose: 100 mls/hr Vancomycin HCl 1,500 mg/ (Sodium Chloride) 500 mls @ 250 mls/hr IV Q8H [facility] Last Admin: 04/25/17 11:21 Dose: 250 mls/hr Sodium Chloride (Normal Saline) 1,000 mls @ 125 mls/hr IV ASDIRECTED [facility] Last Admin: 04/25/17 11:14 Dose: 125 mls/hr Morphine Sulfate (Morphine) 2 mg IVPUSH Q2H PRN PRN Reason: Pain (severe 7-10) Stop: 04/26/17 11:10 Last Admin: 04/25/17 14:24 Dose: 2 mg Omeprazole (Omeprazole) 20 mg PO ACBREAKFAST PRN PRN Reason: Heartburn Ondansetron HCl (Zofran Odt) 4 mg PO Q4H PRN PRN Reason: nausea, able to take PO Last Admin: 04/25/17 13:16 Dose: 4 mg Sodium Chloride (Saline Flush) 10 ml FLUSH ASDIRECTED PRN PRN Reason: Keep Vein Open Sodium Chloride (Saline Flush) 2.5 ml FLUSH ASDIRECTED PRN PRN Reason: Keep Vein Open Vancomycin HCl (Pharmacy To Dose - Vancomycin) 1 dose .XX ASDIRECTED [facility]
[2017-04-25] MEDS ORDERED: Omeprazole 20 MG Cap.CR PO PRN (11:27)
[2017-04-25] MEDS: Acetaminophen 325 MG Tab PO PRN ×2 (13:16→19:45)
[2017-04-25] MEDS: Enoxaparin 40 MG/0.4 ML Syringe SUBCUT SCH (13:33)
[2017-04-25] MEDS: Morphine 10 MG/ML Syringe IVPUSH PRN ×2 (14:24→19:46)
[2017-04-25] MEDS ORDERED: Ibuprofen 400 MG Tab PO ONE (15:05)
[2017-04-25] MEDS ORDERED: Acetaminophen 325 MG Tab PO ONE (17:00)
[2017-04-26] MEDS: Sodium Chloride 0.9% 1,000 ML IV SCH ×2 (01:28→18:02)
[2017-04-26] MEDS: Morphine 10 MG/ML Syringe IVPUSH PRN (02:51)
[2017-04-26] MEDS: Acetaminophen 325 MG Tab PO PRN ×3 (04:42→21:49)
[2017-04-26] MEDS: Piperacillin/Tazobactam 3.375 GM in Sodium Chloride 0.9% 50 ML IV SCH ×4 (04:43→21:49)
[2017-04-26 05:48] LABS: CHLORIDE,CL 107 mmol/L (98-110); SODIUM,NA 137 mmol/L (136-146)
[2017-04-26] MEDS: Ibuprofen 800 MG Tab PO PRN ×2 (06:31→13:43)
[2017-04-26] MEDS: Enoxaparin 40 MG/0.4 ML Syringe SUBCUT SCH (09:10)
[2017-04-26] MEDS: amLODIPine 5 MG Tab PO SCH (09:17)
[2017-04-26] MEDS ORDERED: Morphine 2 MG/ML Syringe IVPUSH ONE (14:47)
[2017-04-26] MEDS ORDERED: Acetaminophen/oxyCODONE 325-5 MG Tab PO PRN ×2 (16:09→16:10)
--- NOTE | 2017-04-26 16:58 | CR ---
EXAMINATION: Left ankle HISTORY: Rule out gas COMPARISON: 02/04/2016 TECHNIQUE: 2 views FINDINGS/IMPRESSION: There is prominent soft tissue swelling surrounding the left ankle, possibly re presenting cellulitis, without evidence of subcutaneous gas. There is no acute osseous abnormality, dislocation, or fracture.. Bone mineralization and joint spaces are otherwise preserved.
--- NOTE | 2017-04-26 19:58 | PCM.PN ---
<Ramiro Gomez Z - Last Filed: 04/26/17 19:51> - General Info Date of Service: 04/26/17 Admission Dx/Problem (Free Text): Patient is complaining of leg pain that is moving up into the inguinal lymph nodes. Likely lymphadenitis secondary to cellulitis infection. Patient on IV IV antibiotics including vancomycin for which is seems he is getting a red man syndrome is complaining of rigors, headaches, flushing immediately after the vancomycin infusion. The vancomycin is being infused at a rate of 1.5 g per 8 hours we shall switch him over to linezolid IV 600 mg every 12 hours. I put the patient on Percocet when necessary every 4 for pain control we will continue to monitor the patient. Patient denying any nausea vomiting diarrhea or constipation. Functional Status: Reports: Pain Controlled - Review of Systems General: Reports: Weakness, Fatigue HEENT: Reports: No Symptoms, Headaches Pulmonary: Reports: No Symptoms Cardiovascular: Reports: No Symptoms Gastrointestinal: Reports: No Symptoms Musculoskeletal: Reports: Leg Pain, Foot Pain, Joint Swelling - Patient Data Vitals - Most Recent: Last Vital Signs Temp 37.7 C 04/26/17 15:58 Pulse 105 H 04/26/17 15:58 Resp 19 04/26/17 15:58 BP 128/59 L 04/26/17 15:58 Pulse Ox 94 L 04/26/17 15:58 Weight - Most Recent: 146.5 kg I&O - Last 24 Hours: Intake & Output 04/26/17 04/26/17 04/26/17 06:59 14:59 22:59 Intake Total 2050 50 1300 Output Total 600 500 Balance 1450 50 800 Lab Results Last 24 Hours: Laboratory Results - last 24 hr 04/25/17 04/26/17 04/26/17 Range/Units 21:36 05:05 05:05 WBC 14.87 H (4.0-11.0) K/uL RBC 4.68 (4.50-5.90) M/uL Hgb 14.0 (13.0-17.0) g/dL Hct 40.9 (38.0-50.0) % MCV 87.4 (80.0-98.0) fL MCH 29.9 (27.0-32.0) pg MCHC 34.2 (31.0-37.0) g/dL RDW Std Deviation 39.3 (28.0-62.0) fl RDW Coeff of Maureen 13 (11.0-15.0) % Plt Count 118 L (150-400) K/uL MPV 9.80 (7.40-12.00) fL Add Manual Diff YES Neutrophils % (Manual) 84 H (48.0-80.0) % Band Neutrophils % 4 % Lymphocytes % (Manual) 9 L (16.0-40.0) % Monocytes % (Manual) 3 (0.0-15.0) % Absolute Seg Neuts 12.5 Band Neutrophils # 0.6 Lymphocytes # (Manual) 1.3 Monocytes # (Manual) 0.4 Lactate 1.9 (0.20-2.00) mmol/L Sodium 137 (136-146) mmol/L Potassium 4.7 (3.5-5.1) mmol/L Chloride 107 (98-110) mmol/L Carbon Dioxide 23 (21-31) mmol/L BUN 10 (6.0-23.0) mg/dL Creatinine 0.8 (0.6-1.5) mg/dL Est Cr Clr Drug Dosing 147.04 mL/min Estimated GFR (MDRD) > 60.0 ml/min Glucose 112 H (60-110) mg/dL Uric Acid (2.1-7.4) mg/dL Calcium 7.8 L (8.8-10.8) mg/dL Vancomycin Trough (5-15) ug/mL 04/26/17 04/26/17 Range/Units 10:01 10:01 WBC (4.0-11.0) K/uL RBC (4.50-5.90) M/uL Hgb (13.0-17.0) g/dL Hct (38.0-50.0) % MCV (80.0-98.0) fL MCH (27.0-32.0) pg MCHC (31.0-37.0) g/dL RDW Std Deviation (28.0-62.0) fl RDW Coeff of Maureen (11.0-15.0) % Plt Count (150-400) K/uL MPV (7.40-12.00) fL Add Manual Diff Neutrophils % (Manual) (48.0-80.0) % Band Neutrophils % % Lymphocytes % (Manual) (16.0-40.0) % Monocytes % (Manual) (0.0-15.0) % Absolute Seg Neuts Band Neutrophils # Lymphocytes # (Manual) Monocytes # (Manual) Lactate (0.20-2.00) mmol/L Sodium (136-146) mmol/L Potassium (3.5-5.1) mmol/L Chloride (98-110) mmol/L Carbon Dioxide (21-31) mmol/L BUN (6.0-23.0) mg/dL Creatinine (0.6-1.5) mg/dL Est Cr Clr Drug Dosing mL/min Estimated GFR (MDRD) ml/min Glucose (60-110) mg/dL Uric Acid 4.9 (2.1-7.4) mg/dL Calcium (8.8-10.8) mg/dL Vancomycin Trough 10.0 (5-15) ug/mL Med Orders - Current: Current Medications Acetaminophen (Tylenol) 650 mg PO Q4H PRN PRN Reason: Pain (Mild 1-3)/fever Last Admin: 04/26/17 12:23 Dose: 650 mg Amlodipine Besylate (Norvasc) 5 mg PO DAILY [facility] Last Admin: 04/26/17 09:17 Dose: Not Given Enoxaparin Sodium (Lovenox) 40 mg SUBCUT DAILY [facility] Last Admin: 04/26/17 09:10 Dose: 40 mg Piperacillin Sod/Tazobactam (Sod 3.375 gm/ Sodium Chloride) 50 mls @ 100 mls/ hr IV Q6H [facility] Last Admin: 04/26/17 15:23 Dose: 100 mls/hr Vancomycin HCl 1,500 mg/ (Sodium Chloride) 500 mls @ 250 mls/hr IV Q8H [facility] Last Admin: 04/26/17 19:35 Dose: Not Given Sodium Chloride (Normal Saline) 1,000 mls @ 75 mls/hr IV ASDIRECTED [facility] Last Admin: 04/26/17 18:02 Dose: 125 mls/hr Linezolid 600 mg/ Premix 300 mls @ 300 mls/hr IV Q12H [facility] Ibuprofen (Motrin) 800 mg PO Q6H PRN PRN Reason: Fever Last Admin: 04/26/17 13:43 Dose: 800 mg Omeprazole (Omeprazole) 20 mg PO ACBREAKFAST PRN PRN Reason: Heartburn Ondansetron HCl (Zofran Odt) 4 mg PO Q4H PRN PRN Reason: nausea, able to take PO Last Admin: 04/25/17 13:16 Dose: 4 mg Oxycodone/Acetaminophen (Percocet 325-5 Mg) 1 tab PO Q4H PRN PRN Reason: Pain Last Admin: 04/26/17 19:46 Dose: 1 tab Sodium Chloride (Saline Flush) 10 ml FLUSH ASDIRECTED PRN PRN Reason: Keep Vein Open Sodium Chloride (Saline Flush) 2.5 ml FLUSH ASDIRECTED PRN PRN Reason: Keep Vein Open Vancomycin HCl (Pharmacy To Dose - Vancomycin) 1 dose .XX ASDIRECTED [facility] Discontinued Medications Acetaminophen (Tylenol) 650 mg PO NOW ONE Stop: 04/25/17 17:01 Last Admin: 04/25/17 17:22 Dose: 650 mg Sodium Chloride (Normal Saline) 1,000 mls @ 999 mls/hr IV STAT ONE Stop: 04/25/17 10:29 Last Admin: 04/25/17 10:02 Dose: 999 mls/hr Sodium Chloride (Normal Saline) 1,000 mls @ 150 mls/hr IV ASDIRECTED [facility] Sodium Chloride (Normal Saline) 1,000 mls @ 999 mls/hr IV NOW STA Stop: 04/25/17 11:38 Last Admin: 04/25/17 10:38 Dose: 999 mls/hr Sodium Chloride (Normal Saline) 1,000 mls @ 999 mls/hr IV .Bolus ONE Stop: 04/25/17 16:30 Last Admin: 04/25/17 16:01 Dose: 999 mls/hr Ibuprofen (Motrin) 400 mg PO ONETIME ONE Stop: 04/25/17 15:06 Last Admin: 04/25/17 15:18 Dose: 400 mg Morphine Sulfate (Morphine) 2 mg IV ONETIME ONE Stop: 04/25/17 10:19 Last Admin: 04/25/17 10:38 Dose: Not Given Morphine Sulfate (Morphine) 2 mg IVPUSH NOW STA Stop: 04/25/17 10:23 Last Admin: 04/25/17 10:27 Dose: 2 mg Morphine Sulfate (Morphine) 2 mg IVPUSH Q2H PRN PRN Reason: Pain (severe 7-10) Stop: 04/26/17 11:10 Last Admin: 04/26/17 02:51 Dose: 2 mg Morphine Sulfate (Morphine) 2 mg IVPUSH ONETIME ONE Stop: 04/26/17 14:48 Last Admin: 04/26/17 14:55 Dose: 2 mg Ondansetron HCl (Zofran) 4 mg IVPUSH ONETIME ONE Stop: 04/25/17 10:27 Last Admin: 04/25/17 10:31 Dose: 4 mg Oxycodone/Acetaminophen (Percocet 325-5 Mg) 1 tab PO Q2H PRN PRN Reason: Pain - Exam General: Alert HEENT: Pupils Equal Neck: Supple Lungs: Clear to Auscultation Cardiovascular: Regular Rate GI/Abdominal Exam: Normal Bowel Sounds, No Distention Extremities: Joint Swelling, Leg Pain, Increased Warmth, Redness (Left leg site of infection showing increased erythema and edema. Soft tissue x-ray only shows edema without any air or abscess formation) - Problem List Review Problem List Initiated/Reviewed/Updated: Yes - My Orders Last 24 Hours: My Active Orders 04/26/17 16:10 Acetaminophen/oxyCODONE [Percocet 325-5 MG] 1 tab PO Q4H PRN 04/26/17 20:00 Linezolid [Zyvox] 600 mg Premix Bag 1 bag IV Q12H - Plan Plan:: 36-year-old male being admitted with left lower extending cellulitis. #1. Lactic acidosis secondary to left lower extremity cellulitis: -Patient's WBC is coming down to 2 red man syndrome patient will be switched from vancomycin IV to Linezolid -Percocet oral 2 mg every 4 hours when necessary as needed for pain relief. -Initial lactate was 2.6. Has now normalized #2. Hypertension: -We will restart the patient's home medication of Norvasc. #3. Red man syndrome secondary to vancomycin Switch IV Vanco over to linezolid. DVT prophylaxis: Lovenox. We will not use SCDs at this time secondary to pain in the left lower extremity. <Pedrito Ortiz - Last Filed: 04/27/17 12:45> - General Info Admission Dx/Problem (Free Text): I was present with the resident during history and examination. I discussed the case with the resident and agree with the findings and plan as documented in the residents note. - Patient Data Vitals - Most Recent: Last Vital Signs Temp 36.8 C 04/27/17 08:00 Pulse 85 04/27/17 08:00 Resp 16 04/27/17 08:00 BP 134/63 04/27/17 09:37 Pulse Ox 98 04/27/17 08:00 I&O - Last 24 Hours: Intake & Output 04/26/17 04/27/17 04/27/17 22:59 06:59 14:59 Intake Total 1650 2472 300 Output Total 500 1200 Balance 1150 1272 300 Lab Results Last 24 Hours: Laboratory Results - last 24 hr 04/27/17 04/27/17 Range/Units 05:23 05:23 WBC 11.68 H (4.0-11.0) K/uL RBC 4.33 L (4.50-5.90) M/uL Hgb 13.1 (13.0-17.0) g/dL Hct 37.7 L (38.0-50.0) % MCV 87.1 (80.0-98.0) fL MCH 30.3 (27.0-32.0) pg MCHC 34.7 (31.0-37.0) g/dL RDW Std Deviation 42.1 (28.0-62.0) fl RDW Coeff of Maureen 13 (11.0-15.0) % Plt Count 111 L (150-400) K/uL MPV 9.30 (7.40-12.00) fL Add Manual Diff YES Neutrophils % (Manual) 71 (48.0-80.0) % Band Neutrophils % 10 % Lymphocytes % (Manual) 15 L (16.0-40.0) % Monocytes % (Manual) 3 (0.0-15.0) % Eosinophils % (Manual) 1 (0.0-7.0) % Nucleated RBC % 0.0 /100WBC Absolute Seg Neuts 8.3 Band Neutrophils # 1.2 Lymphocytes # (Manual) 1.8 Monocytes # (Manual) 0.4 Eosinophils # (Manual) 0.1 Nucleated RBCs # 0 K/uL Sodium 137 (136-146) mmol/L Potassium 4.4 (3.5-5.1) mmol/L Chloride 108 (98-110) mmol/L Carbon Dioxide 24 (21-31) mmol/L BUN 6 (6.0-23.0) mg/dL Creatinine 0.7 (0.6-1.5) mg/dL Est Cr Clr Drug Dosing 167.24 mL/min Estimated GFR (MDRD) > 60.0 ml/min Glucose 103 (60-110) mg/dL Calcium 7.9 L (8.8-10.8) mg/dL Med Orders - Current: Current Medications Acetaminophen (Tylenol) 650 mg PO Q4H PRN PRN Reason: Pain (Mild 1-3)/fever Last Admin: 04/26/17 21:49 Dose: 650 mg Amlodipine Besylate (Norvasc) 5 mg PO DAILY [facility] Last Admin: 04/27/17 09:37 Dose: 5 mg Enoxaparin Sodium (Lovenox) 40 mg SUBCUT DAILY [facility] Last Admin: 04/27/17 09:26 Dose: 40 mg Piperacillin Sod/Tazobactam (Sod 3.375 gm/ Sodium Chloride) 50 mls @ 100 mls/ hr IV Q6H [facility] Last Admin: 04/27/17 10:49 Dose: 100 mls/hr Sodium Chloride (Normal Saline) 1,000 mls @ 75 mls/hr IV ASDIRECTED [facility] Last Admin: 04/27/17 09:28 Dose: 125 mls/hr Linezolid 600 mg/ Premix 300 mls @ 300 mls/hr IV Q12H [facility] Last Admin: 04/27/17 09:25 Dose: 300 mls/hr Ibuprofen (Motrin) 800 mg PO Q6H PRN PRN Reason: Fever Last Admin: 04/26/17 13:43 Dose: 800 mg Morphine Sulfate (Morphine) 4 mg IVPUSH Q1H PRN PRN Reason: Pain Last Admin: 04/27/17 06:07 Dose: 4 mg Omeprazole (Omeprazole) 20 mg PO ACBREAKFAST PRN PRN Reason: Heartburn Ondansetron HCl (Zofran Odt) 4 mg PO Q4H PRN PRN Reason: nausea, able to take PO Last Admin: 04/25/17 13:16 Dose: 4 mg Oxycodone/Acetaminophen (Percocet 325-5 Mg) 2 tab PO Q4H PRN PRN Reason: Pain Last Admin: 04/27/17 09:25 Dose: 2 tab Sodium Chloride (Saline Flush) 10 ml FLUSH ASDIRECTED PRN PRN Reason: Keep Vein Open Sodium Chloride (Saline Flush) 2.5 ml FLUSH ASDIRECTED PRN PRN Reason: Keep Vein Open Discontinued Medications Acetaminophen (Tylenol) 650 mg PO NOW ONE Stop: 04/25/17 17:01 Last Admin: 04/25/17 17:22 Dose: 650 mg Sodium Chloride (Normal Saline) 1,000 mls @ 999 mls/hr IV STAT ONE Stop: 04/25/17 10:29 Last Admin: 04/25/17 10:02 Dose: 999 mls/hr Vancomycin HCl 1,500 mg/ (Sodium Chloride) 500 mls @ 250 mls/hr IV Q8H [facility] Last Admin: 04/26/17 19:35 Dose: Not Given Sodium Chloride (Normal Saline) 1,000 mls @ 150 mls/hr IV ASDIRECTED [facility] Sodium Chloride (Normal Saline) 1,000 mls @ 999 mls/hr IV NOW STA Stop: 04/25/17 11:38 Last Admin: 04/25/17 10:38 Dose: 999 mls/hr Sodium Chloride (Normal Saline) 1,000 mls @ 999 mls/hr IV .Bolus ONE Stop: 04/25/17 16:30 Last Admin: 04/25/17 16:01 Dose: 999 mls/hr Ibuprofen (Motrin) 400 mg PO ONETIME ONE Stop: 04/25/17 15:06 Last Admin: 04/25/17 15:18 Dose: 400 mg Morphine Sulfate (Morphine) 2 mg IV ONETIME ONE Stop: 04/25/17 10:19 Last Admin: 04/25/17 10:38 Dose: Not Given Morphine Sulfate (Morphine) 2 mg IVPUSH NOW STA Stop: 04/25/17 10:23 Last Admin: 04/25/17 10:27 Dose: 2 mg Morphine Sulfate (Morphine) 2 mg IVPUSH Q2H PRN PRN Reason: Pain (severe 7-10) Stop: 04/26/17 11:10 Last Admin: 04/26/17 02:51 Dose: 2 mg Morphine Sulfate (Morphine) 2 mg IVPUSH ONETIME ONE Stop: 04/26/17 14:48 Last Admin: 04/26/17 14:55 Dose: 2 mg Ondansetron HCl (Zofran) 4 mg IVPUSH ONETIME ONE Stop: 04/25/17 10:27 Last Admin: 04/25/17 10:31 Dose: 4 mg Oxycodone/Acetaminophen (Percocet 325-5 Mg) 1 tab PO Q2H PRN PRN Reason: Pain Oxycodone/Acetaminophen (Percocet 325-5 Mg) 1 tab PO Q4H PRN PRN Reason: Pain Last Admin: 04/26/17 19:46 Dose: 1 tab Vancomycin HCl (Pharmacy To Dose - Vancomycin) 1 dose .XX ASDIRECTED [facility]
[2017-04-26] MEDS: Acetaminophen/oxyCODONE 325-5 MG Tab PO PRN (20:34)
[2017-04-26] MEDS: Linezolid 600 MG in Premix Bag 1 BAG IV SCH (20:35)
[2017-04-26] MEDS: Morphine 4 MG/ML Syringe IVPUSH PRN (22:39)
[2017-04-27] MEDS: Acetaminophen/oxyCODONE 325-5 MG Tab PO PRN ×2 (03:11→09:25)
[2017-04-27] MEDS: Piperacillin/Tazobactam 3.375 GM in Sodium Chloride 0.9% 50 ML IV SCH ×2 (03:12→10:49)
[2017-04-27 05:53] LABS: CHLORIDE,CL 108 mmol/L (98-110); SODIUM,NA 137 mmol/L (136-146)
[2017-04-27] MEDS: Morphine 4 MG/ML Syringe IVPUSH PRN (06:07)
[2017-04-27] MEDS: Linezolid 600 MG in Premix Bag 1 BAG IV SCH (09:25)
[2017-04-27] MEDS: Enoxaparin 40 MG/0.4 ML Syringe SUBCUT SCH (09:26)
[2017-04-27] MEDS: Sodium Chloride 0.9% 1,000 ML IV SCH (09:28)
[2017-04-27] MEDS: amLODIPine 5 MG Tab PO SCH (09:37)
[2017-04-27 09:38] VITALS: BP 134/58
--- NOTE | 2017-05-01 23:58 | PCM.DCSUM1 ---
Discharge Summary - Hospital Course Free Text/Narrative:: Discharge Summary Date of admission: 04/25/2017 Date of discharge: 04/27/2017 Admitting diagnosis: #1. Left lower leg cellulitis #2. Lactic acidosis #3. Hypertension #4. Leukocytosis neutrophilic shift in nature #5. Discharge diagnoses: #1. Left lower leg cellulitis now improving #2. Lactic acidosis now resolved #3. Hypertension now under better control #4. Leukocytosis now resolving #5. Consultations: None Procedures: None Hospitalization course: Patient was admitted secondary to a large cellulitis on his left lower leg with an elevated lactic acid level, and leukocytosis primarily neutrophilic in nature. Patient was given broad-spectrum IV antibiotics, as well as opiates for pain control. Patient developed red man syndrome on second day of admission secondary to his vancomycin infusion rate as a result I switch the patient from vancomycin to linezolid. And subsequently patient did not have any further episodes of rigors or chills and headaches. Patient started to exhibit increasing pain throughout the first 2 days of his admission including pain that was really helped was inguinal area likely secondary to lymphadenitis/lymphadenopathy due to his lower leg cellulitis. By date. Admission patient cellulitis habits improved with redness coming down, he still had a large amount of effusion on his left lower leg however the patient was insistent upon being discharged home because he wanted to go to his friend' s wedding. Because his vital signs were stable, his leukocytosis was coming down , and his cellulitis was improving we did feel that the patient could be discharged on oral medications but with the strict instructions to go to an ER right away if his cellulitis got worse while traveling. The patient was also told to take frequent breaks while he traveled to a wedding to ensure he would not have any further clots. Patient was given oral antibiotics along with pain control and discharged home. Disposition on discharge: Home Condition on discharge: Stable, with cellulitis improving from admission, patient deny nausea vomiting diarrhea or constipation. Discharge medications: Augmentin, Bactrim for antibiotic coverage for both gram positives and negative organisms. Patient also has been given Percocet along with tramadol for pain control as well as continuation of home medication Follow-up instructions: Follow-up with primary care physician once the patient comes back from wedding. Patient was also told that if on his way to wedding he has at least worsening of his cellulitis history admitted event of the ER for reassessment. - Discharge Data Discharge Date: 04/27/17 Discharge Disposition: Home, Self-Care 01 Condition: Fair - Discharge Plan Prescriptions/Med Rec: Amoxicillin/Clavulanate K [Augmentin 875 MG/125 MG] 1 tab PO Q12HR 14 Days Acetaminophen/oxyCODONE [Percocet 325-5 MG] 1 tab PO Q4H PRN #25 tablet PRN Reason: Pain (Severe 7-10) Sulfamethoxazole/Trimethoprim [Bactrim Ds Tablet] 1 each PO BID #28 tablet traMADol [Ultram] 50 mg PO Q4H #25 tablet Home Medications: Home Meds Omeprazole 1 cap PO ASDIRECTED PRN 04/25/17 [History] amLODIPine [Norvasc] 1 tab PO DAILY 04/25/17 [History] Acetaminophen/oxyCODONE [Percocet 325-5 MG] 1 tab PO Q4H PRN #25 tablet [Rx] Amoxicillin/Clavulanate K [Augmentin 875 MG/125 MG] 1 tab PO Q12HR 14 Days 04/27 [Rx] Sulfamethoxazole/Trimethoprim [Bactrim Ds Tablet] 1 each PO BID #28 tablet 04/27 [Rx] traMADol [Ultram] 50 mg PO Q4H #25 tablet 04/27/17 [Rx] Patient Handouts: Amoxicillin; Clavulanic Acid tablets, Cellulitis, Adult, Acetaminophen; Oxycodone tablets, Tramadol tablets, Sepsis, Adult, Sulfamethoxazole; Trimethoprim, SMX-TMP tablets Referrals: Ramiro Gomez MD [Other] - 05/07/17 3:00 pm - Discharge Summary/Plan Comment DC Time >30 min.: No - Patient Data Vitals - Most Recent: Last Vital Signs Temp 36.8 C 04/27/17 08:00 Pulse 85 04/27/17 08:00 Resp 16 04/27/17 08:00 BP 134/63 04/27/17 09:37 Pulse Ox 98 04/27/17 08:00 Weight - Most Recent: 146.5 kg Med Orders - Current: Current Medications Discontinued Medications Acetaminophen (Tylenol) 650 mg PO Q4H PRN PRN Reason: Pain (Mild 1-3)/fever Last Admin: 04/26/17 21:49 Dose: 650 mg Acetaminophen (Tylenol) 650 mg PO NOW ONE Stop: 04/25/17 17:01 Last Admin: 04/25/17 17:22 Dose: 650 mg Amlodipine Besylate (Norvasc) 5 mg PO DAILY [facility] Last Admin: 04/27/17 09:37 Dose: 5 mg Enoxaparin Sodium (Lovenox) 40 mg SUBCUT DAILY [facility] Last Admin: 04/27/17 09:26 Dose: 40 mg Sodium Chloride (Normal Saline) 1,000 mls @ 999 mls/hr IV STAT ONE Stop: 04/25/17 10:29 Last Admin: 04/25/17 10:02 Dose: 999 mls/hr Piperacillin Sod/Tazobactam (Sod 3.375 gm/ Sodium Chloride) 50 mls @ 100 mls/ hr IV Q6H [facility] Last Admin: 04/27/17 10:49 Dose: 100 mls/hr Vancomycin HCl 1,500 mg/ (Sodium Chloride) 500 mls @ 250 mls/hr IV Q8H [facility] Last Admin: 04/26/17 19:35 Dose: Not Given Sodium Chloride (Normal Saline) 1,000 mls @ 150 mls/hr IV ASDIRECTED [facility] Sodium Chloride (Normal Saline) 1,000 mls @ 999 mls/hr IV NOW STA Stop: 04/25/17 11:38 Last Admin: 04/25/17 10:38 Dose: 999 mls/hr Sodium Chloride (Normal Saline) 1,000 mls @ 75 mls/hr IV ASDIRECTED [facility] Last Admin: 04/27/17 09:28 Dose: 125 mls/hr Sodium Chloride (Normal Saline) 1,000 mls @ 999 mls/hr IV .Bolus ONE Stop: 04/25/17 16:30 Last Admin: 04/25/17 16:01 Dose: 999 mls/hr Linezolid 600 mg/ Premix 300 mls @ 300 mls/hr IV Q12H [facility] Last Admin: 04/27/17 09:25 Dose: 300 mls/hr Ibuprofen (Motrin) 400 mg PO ONETIME ONE Stop: 04/25/17 15:06 Last Admin: 04/25/17 15:18 Dose: 400 mg Ibuprofen (Motrin) 800 mg PO Q6H PRN PRN Reason: Fever Last Admin: 04/26/17 13:43 Dose: 800 mg Morphine Sulfate (Morphine) 2 mg IV ONETIME ONE Stop: 04/25/17 10:19 Last Admin: 04/25/17 10:38 Dose: Not Given Morphine Sulfate (Morphine) 2 mg IVPUSH NOW STA Stop: 04/25/17 10:23 Last Admin: 04/25/17 10:27 Dose: 2 mg Morphine Sulfate (Morphine) 2 mg IVPUSH Q2H PRN PRN Reason: Pain (severe 7-10) Stop: 04/26/17 11:10 Last Admin: 04/26/17 02:51 Dose: 2 mg Morphine Sulfate (Morphine) 2 mg IVPUSH ONETIME ONE Stop: 04/26/17 14:48 Last Admin: 04/26/17 14:55 Dose: 2 mg Morphine Sulfate (Morphine) 4 mg IVPUSH Q1H PRN PRN Reason: Pain Last Admin: 04/27/17 06:07 Dose: 4 mg Omeprazole (Omeprazole) 20 mg PO ACBREAKFAST PRN PRN Reason: Heartburn Ondansetron HCl (Zofran) 4 mg IVPUSH ONETIME ONE Stop: 04/25/17 10:27 Last Admin: 04/25/17 10:31 Dose: 4 mg Ondansetron HCl (Zofran Odt) 4 mg PO Q4H PRN PRN Reason: nausea, able to take PO Last Admin: 04/25/17 13:16 Dose: 4 mg Oxycodone/Acetaminophen (Percocet 325-5 Mg) 1 tab PO Q2H PRN PRN Reason: Pain Oxycodone/Acetaminophen (Percocet 325-5 Mg) 1 tab PO Q4H PRN PRN Reason: Pain Last Admin: 04/26/17 19:46 Dose: 1 tab Oxycodone/Acetaminophen (Percocet 325-5 Mg) 2 tab PO Q4H PRN PRN Reason: Pain Last Admin: 04/27/17 09:25 Dose: 2 tab Sodium Chloride (Saline Flush) 10 ml FLUSH ASDIRECTED PRN PRN Reason: Keep Vein Open Sodium Chloride (Saline Flush) 2.5 ml FLUSH ASDIRECTED PRN PRN Reason: Keep Vein Open Vancomycin HCl (Pharmacy To Dose - Vancomycin) 1 dose .XX ASDIRECTED [facility] *Q Meaningful Use (DIS) - VTE *Q VTE Criteria *Q: - Stroke *Q Stroke Criteria *Q: - AMI *Q AMI Criteria *Q:
== END 2017-04-27 12:40 | disposition home or self-care (01) ==
LOC: MW.ED 08:37 → MW.MS 12:31
PROVIDERS: ADMIT Internal Medicine; ATTEND Internal Medicine
DX: L03.116 Cellulitis of left lower limb (principal); E87.2 Acidosis; I10 Essential (primary) hypertension; G47.30 Sleep apnea, unspecified; Z79.899 Other long term (current) drug therapy
CPT/HCPCS: 36415; 71020; 73600; 80048; 80053; 80202; 83605; 84484; 84550; 85025; 87040; 93005; 93971; 96361; 96365; 96366; 96367; 96372; 96375; 96376; 99285; A9270; G0378; J1650; J2020; J2270; J2405; J2543; J3370; J7040; J7050; 99284

== ENCOUNTER 2017-05-21 11:44 | Emergency (ER) | payer BC ==
--- NOTE | 2017-05-21 12:26 | EDM.PDOC ---
ED HPI GENERAL MEDICAL PROBLEM - General Chief Complaint: Upper Extremity Injury/Pain Stated Complaint: LT ARM HURTS Time Seen by Provider: 05/21/17 11:47 - History of Present Illness INITIAL COMMENTS - FREE TEXT/NARRATIVE: HISTORY AND PHYSICAL: History of present illness: The patient is a 36-year-old male who has a left PICC line in place for IV antibiotics for cellulitis which was placed in [place] on Sunday, 3 days ago; he presented to our clinic to have the dressing changed and the wound checked and everything was good anyone home to take a shower. When he went home he accidentally pulled on the dressing was concerned that he cause some partial dislodgment of the line and came for evaluation. He has no systemic complaints and no pain at the PICC line site or arm pain. Review of systems: As per history of present illness and below otherwise all systems reviewed and negative. Past medical history: As per history of present illness and as reviewed below otherwise noncontributory. Surgical history: As per history of present illness and as reviewed below otherwise noncontributory. Social history: No reported history of drug or alcohol abuse. Family history: As per history of present illness and as reviewed below otherwise noncontributory. Physical exam: Gen.: Well-developed well-nourished man who is nontoxic. Vital signs of the note by me HEENT: Atraumatic, normocephalic, negative for conjunctival pallor or scleral icterus, mucous membranes moist, neck supple, nontender, trachea midline. Lungs: Clear to auscultation, breath sounds equal bilaterally, chest nontender. Heart: S1S2, regular rate and rhythm no overt murmurs Pelvis: Deferred Genitourinary: Deferred. Rectal: Deferred. Extremities: Atraumatic, full range of motion without any defects or deficits, at the left strap remedy soft tissue area a PICC line is seen which is in place without dislodgment and there is some scant amount of blood at the insertion site but there is no compartment tenderness no erythema no swelling in the dressing is clearly rumpled needing replacement. The legs are negative for cords or calf pain. Neurovascular unremarkable. Neuro: Awake, alert, oriented. Cranial nerves II through XII unremarkable. Cerebellum unremarkable. Motor and sensory unremarkable throughout. Exam nonfocal. Diagnostics: 1 view chest x-ray for PICC line placement Therapeutics: Sterile dressing change a PICC line Impression: PICC line evaluation/wound check Definitive disposition and diagnosis as appropriate pending reevaluation and review of above. - Related Data Allergies Allergy/AdvReac Type Severity Reaction Status Date / Time No Known Allergies Allergy Verified 05/21/17 12:14 Home Meds: Home Meds Omeprazole 1 cap PO ASDIRECTED PRN 04/25/17 [History] amLODIPine [Norvasc] 1 tab PO DAILY 04/25/17 [History] Acetaminophen/oxyCODONE [Percocet 325-5 MG] 1 tab PO Q4H PRN #25 tablet [Rx] Amoxicillin/Clavulanate K [Augmentin 875 MG/125 MG] 1 tab PO Q12HR 14 Days tablet 04/27/17 [Rx] Sulfamethoxazole/Trimethoprim [Bactrim Ds Tablet] 1 each PO BID #28 tablet 04/27 [Rx] traMADol [Ultram] 50 mg PO Q4H #25 tablet 04/27/17 [Rx] Past Medical History - Past Health History Medical/Surgical History: Denies Medical/Surgical History HEENT History: Reports: Impaired Vision Cardiovascular History: Reports: Hypertension Respiratory History: Reports: Sleep Apnea Gastrointestinal History: Reports: None Genitourinary History: Reports: None Musculoskeletal History: Reports: None Neurological History: Reports: None Psychiatric History: Reports: None Endocrine/Metabolic History: Reports: None Hematologic History: Reports: None Immunologic History: Reports: None Oncologic (Cancer) History: Reports: None Dermatologic History: Reports: Cellulitis - Infectious Disease History Infectious Disease History: Reports: Chicken Pox - Past Surgical History HEENT Surgical History: Reports: None Cardiovascular Surgical History: Reports: None Respiratory Surgical History: Reports: None Social & Family History - Family History Family Medical History: Noncontributory - Tobacco Use Smoking Status *Q: Current Some Day Smoker Years of Tobacco use: 10 Packs/Tins Daily: 0.1 Used Tobacco, but Quit: No Month Tobacco Last Used: 05/2015 Second Hand Smoke Exposure: No - Caffeine Use Caffeine Use: Reports: Coffee Other Caffeine Use: 1 cup per day Caffeine Use Comment: 2 cups per day - Alcohol Use Days Per Week of Alcohol Use: 1 Number of Drinks Per Day: 1 Total Drinks Per Week: 1 - Recreational Drug Use Recreational Drug Use: No Review of Systems - Review of Systems Review Of Systems: ROS reveals no pertinent complaints other than HPI. ED EXAM, GENERAL - Physical Exam Exam: See Below (See dictation) Course - Vital Signs Last Recorded V/S: Last Vital Signs Temp 36.1 C 05/21/17 12:14 Pulse 86 05/21/17 12:14 Resp 16 05/21/17 12:14 BP 155/85 H 05/21/17 12:14 Pulse Ox 97 05/21/17 12:14 - Orders/Labs/Meds Orders: Active Orders 24 hr Category Date Time Status Communication Order [RC] STAT Care 05/21/17 12:20 Active Departure - Departure Time of Disposition: 12:58 Disposition: Home, Self-Care 01 Condition: Good Clinical Impression: S/P PICC central line placement, Visit for wound check - Discharge Information Referrals: PCP,None [Primary Care Provider] - Forms: ED Department Discharge Additional Instructions: The following information is given to patients seen in the emergency department who are being discharged to home. This information is to outline your options for follow-up care. We provide all patients seen in our emergency department with a follow-up referral. The need for follow-up, as well as the timing and circumstances, are variable depending upon the specifics of your emergency department visit. If you don't have a primary care physician on staff, we will provide you with a referral. We always advise you to contact your personal physician following an emergency department visit to inform them of the circumstance of the visit and for follow-up with them and/or the need for any referrals to a consulting specialist. The emergency department will also refer you to a specialist when appropriate. This referral assures that you have the opportunity for followup care with a specialist. All of these measure are taken in an effort to provide you with optimal care, which includes your followup. Under all circumstances we always encourage you to contact your private physician who remains a resource for coordinating your care. When calling for followup care, please make the office aware that this follow-up is from your recent emergency room visit. If for any reason you are refused follow-up, please contact the [facility] emergency department at and ask to speak to the emergency department charge nurse. [facility] Primary care- Internal Medicine and Family [address] [id number] Please be especially careful of this PICC line and the dressing. Please go to all appointments as scheduled for rechecks and medications. Return to ER as needed and as discussed - My Orders Last 24 Hours: My Active Orders 05/21/17 12:20 Communication Order [RC] STAT - Assessment/Plan Last 24 Hours: My Active Orders 05/21/17 12:20 Communication Order [RC] STAT
--- NOTE | 2017-05-21 12:56 | CR ---
EXAMINATION: Portable chest radiograph. HISTORY: Evaluate PICC line. FINDINGS: The trachea is midline. The cardiomediastinal silhouette is within normal limits. No pulmonary infilt rates, effusions or pneumothorax. Left-sided PICC line is noted with tip at the atrial caval junction . Osseous structures appear unremarkable. IMPRESSION: No acute cardiopulmonary process.
[2017-05-21 17:48] VITALS: BP 144/79
== END 2017-05-21 13:23 | disposition home or self-care (01) ==
LOC: MW.ED 11:44
DX: Z45.2 Encounter for adjustment and management of vascular access device (principal); I10 Essential (primary) hypertension; F17.210 Nicotine dependence, cigarettes, uncomplicated; Z79.899 Other long term (current) drug therapy
CPT/HCPCS: 71010; 71010-26; 99282; 99283

== ENCOUNTER 2017-07-23 15:04 | Emergency (ER) | payer BC ==
--- NOTE | 2017-07-23 15:20 | EDM.PDOC ---
ED HPI GENERAL MEDICAL PROBLEM - General Chief Complaint: Lower Extremity Injury/Pain Stated Complaint: LT LEG PAIN Time Seen by Provider: 07/23/17 15:18 Source of Information: Reports: Patient History Limitations: Reports: No Limitations - History of Present Illness INITIAL COMMENTS - FREE TEXT/NARRATIVE: History of present illness: [36-year-old male presenting with complaints of left leg pain. Patient has a chronic history with lymphedema as well as on-and-off cellulitis with this leg. Patient does work compression stockings and does do self care which keeps the leg somewhat under control but he noted that he is starting to get the beginning of an infection and couldn't get into his primary care provider so he knows the standard is for him to work to the ER as soon as he notes the beginning of a cellulitic infection.] Review of systems: As per history of present illness and below otherwise all systems reviewed and negative. Past medical history: As per history of present illness and as reviewed below otherwise noncontributory. Surgical history: As per history of present illness and as reviewed below otherwise noncontributory. Social history: No reported history of drug or alcohol abuse. Family history: As per history of present illness and as reviewed below otherwise noncontributory. Physical exam: HEENT: Atraumatic, normocephalic, pupils reactive, negative for conjunctival pallor or scleral icterus, mucous membranes moist, throat clear, neck supple, nontender, trachea midline. Lungs: Clear to auscultation, breath sounds equal bilaterally, chest nontender. Heart: S1S2, regular, negative for clicks, rubs, or JVD. Abdomen: Soft, nondistended, nontender. Negative for masses or hepatosplenomegaly. Negative for costovertebral tenderness. Pelvis: Stable nontender. Genitourinary: Deferred. Rectal: Deferred. Extremities: Bilateral lower extremities erythematous left greater than right. Neurovascular unremarkable. Neuro: Awake, alert, oriented. Cranial nerves II through XII unremarkable. Cerebellum unremarkable. Motor and sensory unremarkable throughout. Exam nonfocal. Diagnostics: [CBC, CMP, amylase, lipase] Therapeutics: [IV fluid, Toradol, Zofran, morphine, Levaquin] Impression: [Cellulitis] Plan: [Levaquin by mouth follow-up with PCP] Definitive disposition and diagnosis as appropriate pending reevaluation and review of above. Left Lower Leg Pain Score (Numeric/FACES): 6 - Related Data Allergies Allergy/AdvReac Type Severity Reaction Status Date / Time vancomycin Allergy Cannot Verified 07/23/17 15:39 Remember Home Meds: Home Meds amLODIPine [Norvasc] 5 mg PO DAILY 04/25/17 [History] Levofloxacin [Levaquin] 750 mg PO DAILY #10 tablet 07/23/17 [Rx] Past Medical History - Past Health History Medical/Surgical History: Denies Medical/Surgical History HEENT History: Reports: Impaired Vision Cardiovascular History: Reports: Hypertension Respiratory History: Reports: Sleep Apnea Gastrointestinal History: Reports: None Genitourinary History: Reports: None Musculoskeletal History: Reports: None Neurological History: Reports: None Psychiatric History: Reports: None Endocrine/Metabolic History: Reports: None Hematologic History: Reports: None Immunologic History: Reports: None Oncologic (Cancer) History: Reports: None Dermatologic History: Reports: Cellulitis - Infectious Disease History Infectious Disease History: Reports: Chicken Pox - Past Surgical History HEENT Surgical History: Reports: None Cardiovascular Surgical History: Reports: None Respiratory Surgical History: Reports: None Social & Family History - Family History Family Medical History: Noncontributory - Tobacco Use Smoking Status *Q: Current Some Day Smoker Years of Tobacco use: 10 Packs/Tins Daily: 0.1 Used Tobacco, but Quit: No Month Tobacco Last Used: 05/2015 Second Hand Smoke Exposure: No - Caffeine Use Caffeine Use: Reports: Coffee Other Caffeine Use: 1 cup per day Caffeine Use Comment: 2 cups per day - Alcohol Use Days Per Week of Alcohol Use: 1 Number of Drinks Per Day: 1 Total Drinks Per Week: 1 - Recreational Drug Use Recreational Drug Use: No Review of Systems - Review of Systems Review Of Systems: See Below (See history of present illness) ED EXAM, GENERAL - Physical Exam Exam: See Below (See history of present illness) Course - Vital Signs Last Recorded V/S: Last Vital Signs Temp 36.7 C 07/23/17 15:13 Pulse 86 07/23/17 15:13 Resp 18 07/23/17 15:13 BP 144/81 H 07/23/17 15:13 Pulse Ox 96 07/23/17 15:13 - Orders/Labs/Meds Orders: Active Orders 24 hr Category Date Time Status Levofloxacin/Dextrose 5%-Water [Levaquin in D5W 750 MG/ Med 07/23/17 16:19 Active 150 ML] 750 mg Premix Bag 1 bag IV ONETIME Sodium Chloride 0.9% [Normal Saline] 1,000 ml Med 07/23/17 16:19 Active IV STAT Medication Orders Levofloxacin/Dextrose 750 mg/ (Premix) 150 mls @ 100 mls/hr IV ONETIME ONE Stop: 07/23/17 17:48 Sodium Chloride (Normal Saline) 1,000 mls @ 999 mls/hr IV STAT ONE Stop: 07/23/17 17:19 Labs: Laboratory Tests 07/23/17 07/23/17 Range/Units 15:25 15:25 WBC 8.48 (4.0-11.0) K/uL RBC 5.31 (4.50-5.90) M/uL Hgb 16.3 (13.0-17.0) g/dL Hct 46.1 (38.0-50.0) % MCV 86.8 (80.0-98.0) fL MCH 30.7 (27.0-32.0) pg MCHC 35.4 (31.0-37.0) g/dL RDW Std Deviation 41.9 (28.0-62.0) fl RDW Coeff of Maureen 13 (11.0-15.0) % Plt Count 202 (150-400) K/uL MPV 9.30 (7.40-12.00) fL Neut % (Auto) 51.3 (48.0-80.0) % Lymph % (Auto) 36.9 (16.0-40.0) % [place]ake % (Auto) 7.7 (0.0-15.0) % Eos % (Auto) 3.7 (0.0-7.0) % Baso % (Auto) 0.4 (0.0-1.5) % Neut # (Auto) 4.4 (1.4-5.7) K/uL Lymph # (Auto) 3.1 H (0.6-2.4) K/uL [place]ake # (Auto) 0.7 (0.0-0.8) K/uL Eos # (Auto) 0.3 (0.0-0.7) K/uL Baso # (Auto) 0.0 (0.0-0.1) K/uL Nucleated RBC % 0.0 /100WBC Nucleated RBCs # 0 K/uL Sodium 140 (136-146) mmol/L Potassium 4.3 (3.5-5.1) mmol/L Chloride 107 (98-110) mmol/L Carbon Dioxide 23 (21-31) mmol/L BUN 13 (6.0-23.0) mg/dL Creatinine 0.8 (0.6-1.5) mg/dL Est Cr Clr Drug Dosing 147.04 mL/min Estimated GFR (MDRD) > 60.0 ml/min Glucose 82 (60-110) mg/dL Calcium 9.6 (8.8-10.8) mg/dL Total Bilirubin 0.5 (0.1-1.5) mg/dL AST 21 (5-40) IU/L ALT 45 (8-54) IU/L Alkaline Phosphatase 86 (40-150) Total Protein 7.4 (6.0-8.0) g/dL Albumin 4.3 (3.5-5.0) g/dL Globulin 3.1 (2.0-3.5) g/dL Albumin/Globulin Ratio 1.4 (1.3-2.8) Amylase 32 (10-90) U/L Lipase 20 (7-80) U/L Meds: Medications Generic Name Dose Route Start Last Admin Trade Name Freq PRN Reason Stop Dose Admin Levofloxacin/Dextrose 750 mg/ 150 mls @ 100 mls/hr 07/23/17 16:19 Premix IV 07/23/17 17:48 ONETIME ONE Sodium Chloride 1,000 mls @ 999 mls/hr 07/23/17 16:19 Normal Saline IV 07/23/17 17:19 STAT ONE Discontinued Medications Generic Name Dose Route Start Last Admin Trade Name Freq PRN Reason Stop Dose Admin Ketorolac Tromethamine 30 mg 07/23/17 16:19 Toradol IVPUSH 07/23/17 16:20 ONETIME ONE Morphine Sulfate 2 mg 07/23/17 16:19 Morphine IVPUSH 07/23/17 16:20 ONETIME ONE Ondansetron HCl 4 mg 07/23/17 16:19 Zofran IVPUSH 07/23/17 16:20 ONETIME ONE Departure - Departure Time of Disposition: 16:52 Disposition: Home, Self-Care 01 Condition: Good Clinical Impression: Cellulitis - Discharge Information Prescriptions: Levofloxacin [Levaquin] 750 mg PO DAILY #10 tablet Referrals: Ernesto Wu MD [Primary Care Provider] - Forms: ED Department Discharge Additional Instructions: The following information is given to patients seen in the emergency department who are being discharged to home. This information is to outline your options for follow-up care. We provide all patients seen in our emergency department with a follow-up referral. The need for follow-up, as well as the timing and circumstances, are variable depending upon the specifics of your emergency department visit. If you don't have a primary care physician on staff, we will provide you with a referral. We always advise you to contact your personal physician following an emergency department visit to inform them of the circumstance of the visit and for follow-up with them and/or the need for any referrals to a consulting specialist. The emergency department will also refer you to a specialist when appropriate. This referral assures that you have the opportunity for follow-up care with a specialist. All of these measure are taken in an effort to provide you with optimal care, which includes your follow-up. Under all circumstances we always encourage you to contact your private physician who remains a resource for coordinating your care. When calling for follow-up care, please make the office aware that this follow-up is from your recent emergency room visit. If for any reason you are refused follow-up, please contact the [facility] Emergency Department at and asked to speak to the emergency department charge nurse. Take medication as directed Follow-up with PCP in 1-2 days as discussed Return to ED as needed as discussed - My Orders Last 24 Hours: My Active Orders 07/23/17 16:19 Levofloxacin/Dextrose 5%-Water [Levaquin in D5W 750 MG/150 ML] 750 mg Premix Bag 1 bag IV ONETIME Sodium Chloride 0.9% [Normal Saline] 1,000 ml IV STAT - Assessment/Plan Last 24 Hours: My Active Orders 07/23/17 16:19 Levofloxacin/Dextrose 5%-Water [Levaquin in D5W 750 MG/150 ML] 750 mg Premix Bag 1 bag IV ONETIME Sodium Chloride 0.9% [Normal Saline] 1,000 ml IV STAT
[2017-07-23 15:59] LABS: CHLORIDE,CL 107 mmol/L (98-110); SODIUM,NA 140 mmol/L (136-146)
[2017-07-23] MEDS ORDERED: Ketorolac 30 MG/ML SDV IVPUSH ONE (16:19)
[2017-07-23] MEDS ORDERED: Ondansetron 4 MG/2 ML SDV IVPUSH ONE (16:19)
[2017-07-23] MEDS ORDERED: Sodium Chloride 0.9% 1,000 ML IV ONE (16:19)
[2017-07-23] MEDS ORDERED: Morphine 2 MG/ML Syringe IVPUSH ONE (16:19)
[2017-07-23] MEDS ORDERED: Levofloxacin/Dextrose 5%-Water 750 MG in Premix Bag 1 BAG IV ONE (16:19)
[2017-07-23 19:53] VITALS: BP 139/56
== END 2017-07-23 18:47 | disposition home or self-care (01) ==
LOC: MW.ED 15:04
DX: L03.116 Cellulitis of left lower limb (principal); F17.210 Nicotine dependence, cigarettes, uncomplicated; Z88.1 Allergy status to other antibiotic agents
CPT/HCPCS: 36415; 80053; 82150; 83690; 85025; 96365; 96366; 96375; 99283; J1885; J1956; J2270; J2405; J7040; 99284

== ENCOUNTER 2017-10-04 12:39 | Emergency (ER) | payer BC ==
--- NOTE | 2017-10-04 13:02 | EDM.PDOC ---
ED HPI GENERAL MEDICAL PROBLEM - General Chief Complaint: Lower Extremity Injury/Pain Stated Complaint: L FOOT PAIN Time Seen by Provider: 10/04/17 12:46 - History of Present Illness INITIAL COMMENTS - FREE TEXT/NARRATIVE: HISTORY AND PHYSICAL: History of present illness: Patient is a 36-year-old white male presents with concern of left lower extremity edema this is a chronic intermittent problem related to chronic lymphedema for which she's been evaluated and is managed with support stockings elevation. He has had a history of cellulitis in the past and is here for screening due to slightly increased Review of systems: As per history of present illness and below otherwise all systems reviewed and negative. Past medical history: As per history of present illness and as reviewed below otherwise noncontributory. Surgical history: As per history of present illness and as reviewed below otherwise noncontributory. Social history: No reported history of drug or alcohol abuse. Family history: As per history of present illness and as reviewed below otherwise noncontributory. Physical exam: HEENT: Atraumatic, normocephalic, pupils reactive, negative for conjunctival pallor or scleral icterus, mucous membranes moist, throat clear, neck supple, nontender, trachea midline. Lungs: Clear to auscultation, breath sounds equal bilaterally, chest nontender. Heart: S1S2, regular, negative for clicks, rubs, or JVD. Abdomen: Soft, nondistended, nontender. Negative for masses or hepatosplenomegaly. Negative for costovertebral tenderness. Pelvis: Stable nontender. Genitourinary: Deferred. Rectal: Deferred. Extremities: Patient has edema noted left lower extremity has some erythema also distally no crepitation point tenderness EMS neurovascular exams unremarkable Neuro: Awake, alert, oriented. Cranial nerves II through XII unremarkable. Cerebellum unremarkable. Motor and sensory unremarkable throughout. Exam nonfocal. Diagnostics: CBC CMP x-ray left foot/ankle uric acid Therapeutics: To be determined Impression: #1 chronic lymphedema left lower extremity #2 history of cellulitis Definitive disposition and diagnosis as appropriate pending reevaluation and review of above. - Related Data Allergies Allergy/AdvReac Type Severity Reaction Status Date / Time vancomycin Allergy Cannot Verified 07/23/17 15:39 Remember Home Meds: Home Meds amLODIPine [Norvasc] 5 mg PO DAILY 04/25/17 [History] Levofloxacin [Levaquin] 750 mg PO DAILY #10 tablet 07/23/17 [Rx] Past Medical History - Past Health History Medical/Surgical History: Denies Medical/Surgical History HEENT History: Reports: Impaired Vision Cardiovascular History: Reports: Hypertension Respiratory History: Reports: Sleep Apnea Gastrointestinal History: Reports: None Genitourinary History: Reports: None Musculoskeletal History: Reports: None Neurological History: Reports: None Psychiatric History: Reports: None Endocrine/Metabolic History: Reports: None Hematologic History: Reports: None Immunologic History: Reports: None Oncologic (Cancer) History: Reports: None Dermatologic History: Reports: Cellulitis Other Dermatologic History: chronic lymphema in left leg - Infectious Disease History Infectious Disease History: Reports: Chicken Pox - Past Surgical History HEENT Surgical History: Reports: None Cardiovascular Surgical History: Reports: None Respiratory Surgical History: Reports: None Social & Family History - Family History Family Medical History: Noncontributory - Tobacco Use Smoking Status *Q: Current Some Day Smoker Years of Tobacco use: 10 Packs/Tins Daily: 0.1 Used Tobacco, but Quit: No Month Tobacco Last Used: 05/2015 Second Hand Smoke Exposure: No - Caffeine Use Caffeine Use: Reports: Coffee Other Caffeine Use: 1 cup per day Caffeine Use Comment: 2 cups per day - Alcohol Use Days Per Week of Alcohol Use: 1 Number of Drinks Per Day: 1 Total Drinks Per Week: 1 - Recreational Drug Use Recreational Drug Use: No Review of Systems - Review of Systems Review Of Systems: ROS reveals no pertinent complaints other than HPI. ED EXAM, GENERAL - Physical Exam Exam: See Below (See dictation) Course - Vital Signs Last Recorded V/S: Last Vital Signs Temp 35.8 C 10/04/17 12:54 Pulse 77 10/04/17 12:54 Resp 16 10/04/17 12:54 BP 148/78 H 10/04/17 12:54 Pulse Ox 96 10/04/17 12:54 - Orders/Labs/Meds Orders: Active Orders 24 hr Category Date Time Status Ankle Min 3V Lt [CR] Stat Exams 10/04/17 13:02 Taken Foot 2V Lt [CR] Stat Exams 10/04/17 13:02 Taken COMPREHENSIVE METABOLIC PN,CMP [CHEM] Stat Lab 10/04/17 13:14 Received Labs: Laboratory Tests 10/04/17 Range/Units 13:14 WBC 6.58 (4.0-11.0) K/uL RBC 5.20 (4.50-5.90) M/uL Hgb 15.7 (13.0-17.0) g/dL Hct 43.9 (38.0-50.0) % MCV 84.4 (80.0-98.0) fL MCH 30.2 (27.0-32.0) pg MCHC 35.8 (31.0-37.0) g/dL RDW Std Deviation 38.4 (28.0-62.0) fl RDW Coeff of Maureen 13 (11.0-15.0) % Plt Count 167 (150-400) K/uL MPV 9.60 (7.40-12.00) fL Neut % (Auto) 49.0 (48.0-80.0) % Lymph % (Auto) 34.2 (16.0-40.0) % Amelia % (Auto) 12.3 (0.0-15.0) % Eos % (Auto) 4.0 (0.0-7.0) % Baso % (Auto) 0.5 (0.0-1.5) % Neut # (Auto) 3.2 (1.4-5.7) K/uL Lymph # (Auto) 2.3 (0.6-2.4) K/uL Amelia # (Auto) 0.8 (0.0-0.8) K/uL Eos # (Auto) 0.3 (0.0-0.7) K/uL Baso # (Auto) 0.0 (0.0-0.1) K/uL Nucleated RBC % 0.0 /100WBC Nucleated RBCs # 0 K/uL Departure - Departure Time of Disposition: 13:01 Disposition: Home, Self-Care 01 Condition: Good Clinical Impression: Cellulitis - Discharge Information Referrals: Ernesto Wu MD [Primary Care Provider] - Forms: ED Department Discharge Additional Instructions: The following information is given to patients seen in the emergency department who are being discharged to home. This information is to outline your options for follow-up care. We provide all patients seen in our emergency department with a follow-up referral. The need for follow-up, as well as the timing and circumstances, are variable depending upon the specifics of your emergency department visit. If you don't have a primary care physician on staff, we will provide you with a referral. We always advise you to contact your personal physician following an emergency department visit to inform them of the circumstance of the visit and for follow-up with them and/or the need for any referrals to a consulting specialist. The emergency department will also refer you to a specialist when appropriate. This referral assures that you have the opportunity for followup care with a specialist. All of these measure are taken in an effort to provide you with optimal care, which includes your followup. Under all circumstances we always encourage you to contact your private physician who remains a resource for coordinating your care. When calling for followup care, please make the office aware that this follow-up is from your recent emergency room visit. If for any reason you are refused follow-up, please contact the [facility] emergency department at and asked to speak to the emergency department charge nurse. Clindamycin and Bactrim as prescribed continue routine care for peripheral lymphedema follow-up primary medical doctor 1-2 days return as needed as discussed - My Orders Last 24 Hours: My Active Orders 10/04/17 13:02 Ankle Min 3V Lt [CR] Stat Foot 2V Lt [CR] Stat 10/04/17 13:14 COMPREHENSIVE METABOLIC PN,CMP [CHEM] Stat - Assessment/Plan Last 24 Hours: My Active Orders 10/04/17 13:02 Ankle Min 3V Lt [CR] Stat Foot 2V Lt [CR] Stat 10/04/17 13:14 COMPREHENSIVE METABOLIC PN,CMP [CHEM] Stat
--- NOTE | 2017-10-04 13:45 | CR ---
EXAMINATION: Left foot and left ankle HISTORY: Pain COMPARISON: 02/12/2017 TECHNIQUE: 2 views of the left foot and 3 views of the left ankle FINDINGS: There is no acute osseous abnormality, dislocation, or fracture. Bone mineralization and garfield int spaces appear normal. Mild generalized soft tissue swelling noted overlying the left forefoot. The ankle mortise and talar dome appear intact. IMPRESSION: 1. Soft tissue swelling without an acute osseous abnormality identified.
[2017-10-04 13:53] LABS: CHLORIDE,CL 107 mmol/L (98-110); SODIUM,NA 139 mmol/L (136-146)
[2017-10-04 14:56] VITALS: BP 131/70
== END 2017-10-04 14:45 | disposition home or self-care (01) ==
LOC: MW.ED 12:39
DX: I89.0 Lymphedema, not elsewhere classified (principal); L03.116 Cellulitis of left lower limb; I10 Essential (primary) hypertension; F17.210 Nicotine dependence, cigarettes, uncomplicated; Z88.1 Allergy status to other antibiotic agents; Z79.899 Other long term (current) drug therapy
CPT/HCPCS: 36415; 73610-26-LT; 73610-LT; 73620-26-LT; 73620-LT; 80053; 85025; 99283

== ENCOUNTER 2019-12-17 06:02 | Emergency (ER) | payer SELFPAY ==
[2019-12-17] MEDS ORDERED: Clindamycin HCl 150 MG Cap PO ONE (06:14)
--- NOTE | 2019-12-17 06:21 | EDM.PDOC ---
ED HPI GENERAL MEDICAL PROBLEM - General Chief Complaint: Skin Complaint Stated Complaint: RIGHT LEG INFECTION Time Seen by Provider: 12/17/19 06:21 Source of Information: Reports: Patient, Family - History of Present Illness INITIAL COMMENTS - FREE TEXT/NARRATIVE: The patient is a 39-year-old male who presents to the ER secondary to suspected cellulitis of his right lower extremity. The patient has had multiple bouts of cellulitis usually in his left leg but this time it is started in his right. He has had previous problems with lymphedema secondary to previous flynn on his legs and he has even had sepsis in the past. Last night he woke up with a pain in his right lower medial extremity that is warm and hot to the touch and feels like other episodes of cellulitis. No fevers, no chills, no systemic symptoms. He has had clindamycin with success in the past. R leg Pain Score (Numeric/FACES): 6 - Related Data Allergies Allergy/AdvReac Type Severity Reaction Status Date / Time vancomycin Allergy Other Verified 12/17/19 06:10 Home Meds: Home Meds Clindamycin HCl 300 mg PO Q6HR 7 Days #28 capsule 12/17/19 [Rx] amLODIPine [Norvasc] 5 mg PO DAILY 12/17/19 [History] Past Medical History - Past Health History Medical/Surgical History: Denies Medical/Surgical History HEENT History: Reports: Impaired Vision Cardiovascular History: Reports: Hypertension Respiratory History: Reports: Sleep Apnea Gastrointestinal History: Reports: None Genitourinary History: Reports: None Musculoskeletal History: Reports: None Neurological History: Reports: None Psychiatric History: Reports: None Endocrine/Metabolic History: Reports: None Hematologic History: Reports: None Immunologic History: Reports: None Oncologic (Cancer) History: Reports: None Dermatologic History: Reports: Cellulitis Other Dermatologic History: chronic lymphedema - Infectious Disease History Infectious Disease History: Reports: None - Past Surgical History HEENT Surgical History: Reports: None Cardiovascular Surgical History: Reports: None Respiratory Surgical History: Reports: None Social & Family History - Family History Family Medical History: Noncontributory - Tobacco Use Smoking Status *Q: Current Every Day Smoker Years of Tobacco use: 2 Packs/Tins Daily: 0.2 - Caffeine Use Caffeine Use: Reports: Coffee Other Caffeine Use: 1 cup per day Caffeine Use Comment: 2 cups per day - Recreational Drug Use Recreational Drug Use: No ED ROS GENERAL - Review of Systems Review Of Systems: See Below (Positive for right lower extremity rash, positive for right lower extremity warmth, negative for right lower extremity swelling, negative for shortness of breath, space all other Positives and pertinent negatives as per HPI. All other pertinent systems were reviewed and are negative ) ED EXAM, SKIN/RASH Exam: See Below Text/Narrative:: Constitutional: No acute distress, Non-toxic appearance, afebrile. HEENT: Normocephalic, Atraumatic, EOMI Neck: Normal range of motion, No stridor, trachea midline Respiratory: No respiratory distress, No tachypnea Cardiovascular: Deferred Gastrointestinal: Deferred Genital / Urinary: Deferred Musculoskeletal: All four extremities present and atraumatic, on the distal, medial aspect of the patient's right lower extremity there is a warm, tender area with multiple, nonblanching, erythematous macules consistent with cellulitis, no edema, no lymphangitis, no calf tenderness or swelling Back: FROM Integument: Warm, Dry, Color is ethnicity appropriate, No rash except as described above. Neuro: Alert, Awake, No focal deficits noted Psych: Affect, Judgement, mood normal Course - Vital Signs Text/Narrative:: Given that the patient has had this before and this feels exactly like previous episodes of cellulitis and there is no concerns at this time for other malignant pathology such as a DVT, and the patient has no systemic symptoms he will be given a dose of clindamycin 300 mg orally here in the ER and a prescription for clindamycin a total of 7 days. Last Recorded V/S: Last Vital Signs Temp 35.9 C L 12/17/19 06:06 Pulse 87 12/17/19 06:06 Resp 18 12/17/19 06:06 BP 151/87 H 12/17/19 06:06 Pulse Ox 97 12/17/19 06:06 - Orders/Labs/Meds Orders: Active Orders 24 hr Category Date Time Status clindamycin HCL [Cleocin] Med 12/17/19 06:14 Once 300 mg PO ONETIME ONE Medication Orders Clindamycin HCl (Cleocin) 300 mg PO ONETIME ONE Stop: 12/17/19 06:15 Meds: Medications Generic Name Dose Route Start Last Admin Trade Name Freq PRN Reason Stop Dose Admin Clindamycin HCl 300 mg 12/17/19 06:14 Cleocin PO 12/17/19 06:15 ONETIME ONE Departure - Departure Time of Disposition: 06:16 Disposition: Home, Self-Care 01 Condition: Good Clinical Impression: Cellulitis of leg, right, Cellulitis - Discharge Information *PRESCRIPTION DRUG MONITORING PROGRAM REVIEWED*: Not Applicable *COPY OF PRESCRIPTION DRUG MONITORING REPORT IN PATIENT KARAN: Not Applicable Referrals: Ramiro Gomez MD [Primary Care Provider] - Sepsis Event Note - Evaluation Sepsis Screening Result: No Definite Risk - Focused Exam Vital Signs: Vital Signs Temp Pulse Resp BP Pulse Ox 12/17/19 06:06 35.9 C L 87 18 151/87 H 97 Date Exam was Performed: 12/17/19 Time Exam was Performed: 06:16 - My Orders Last 24 Hours: My Active Orders 12/17/19 06:14 clindamycin HCL [Cleocin] 300 mg PO ONETIME ONE - Assessment/Plan Last 24 Hours: My Active Orders 12/17/19 06:14 clindamycin HCL [Cleocin] 300 mg PO ONETIME ONE
[2019-12-17 06:25] VITALS: BP 154/84; PULSE 84
== END 2019-12-17 06:32 | disposition home or self-care (01) ==
LOC: MW.ED 06:02
DX: L03.115 Cellulitis of right lower limb (principal); I10 Essential (primary) hypertension; F17.210 Nicotine dependence, cigarettes, uncomplicated; Z88.1 Allergy status to other antibiotic agents; Z79.899 Other long term (current) drug therapy
CPT/HCPCS: 99283; A9270